=== PATIENT | male | born 1960 | race Caucasian/White ===

== ENCOUNTER 2017-12-19 09:28 | Observation (INO) | payer MEDICARE ==
[2017-12-19 11:16] LABS: Absolute Lymphocytes (CBC) 1.2 K/uL (0.7-4.9); Absolute Monocytes 0.5 K/uL (0.1-1.3); Absolute Neutrophil 3.4 K/uL (1.8-8.0); Basophils % 0.7 % (0-1.3); Eosinophils % 1.3 % (0-4.4); Hematocrit 41.7 % (39.6-49.0); Lymphocytes % 23.6 % (15.3-44.8); MCV 94.9 fL (80-100); MPV 9.1 fL (7.6-11.3); RBC Red Blood Cell Count 4.39 M/uL (4.33-5.43)
[2017-12-19] MEDS ORDERED: LORazepam 2 MG/ML VIAL ONE (11:19)
[2017-12-19] MEDS ORDERED: HALOPERIDOL LACT 5 MG/ML INJ ONE (11:25)
[2017-12-19 11:26] LABS: Protime INR 1.06
[2017-12-19 11:30] LABS: ALT/SGPT 111 U/L (12-78); AST/SGOT 111 U/L (15-37); Albumin 3.6 g/dL (3.4-5.0); Alkaline Phosphatase 120 U/L (45-117); BUN Blood Urea Nitrogen 8 mg/dL (7-18); Bicarbonate 32 mmol/L (21-32); Bilirubin Direct 0.2 mg/dL (0-0.2); Bilirubin Total 0.5 mg/dL (0.2-1.0); CKMB Creatine Kinase MB 4.8 ng/mL (0.3-3.6); Creatine Phosphokinase 425 U/L (39-308); Glucose Level 100 mg/dL (74-106); Magnesium 2.1 mg/dL (1.8-2.4); NT PRO-BNP 423 pg/mL (<125); Potassium 3.6 mmol/L (3.5-5.1); Protein, Total 7.3 g/dL (6.4-8.2); Sodium Level 139 mmol/L (136-145)
--- NOTE | 2017-12-19 12:17 | RAD REPORT ---
EXAM DESCRIPTION: CT - Head Brain Wo Cont - 12/19/2017 12:05 pm CLINICAL HISTORY: Seizure/confusion COMPARISON: December 2016 TECHNIQUE: Computed axial tomography of the head was obtained. IV contrast was not requested. All CT scans are performed using dose optimization technique as appropriate and may include automated exposure control or mA/KV adjustment according to patient size. FINDINGS: An intracranial bleed is not seen . The ventricles are normal in caliber. No extra-axial fluid collection is noted. Fluid within the sinuses/ mastoids is not seen. IMPRESSION: No acute intracranial abnormality is seen. If patient's symptoms persist MRI of the bra in would be recommended.
[2017-12-19] MEDS ORDERED: LORazepam 2 MG/ML VIAL IV PRN (12:29)
[2017-12-19] MEDS ORDERED: ONDANSETRON 4 MG/2 ML VIAL IV PRN (12:29)
[2017-12-19] MEDS ORDERED: FLUMAZENIL 0.1 MG/ML (5 mL VIAL) IV PRN (12:29)
--- NOTE | 2017-12-19 12:30 | EDPHYS ---
Physician Documentation [facility] Name: Allan Swanson Jr Age: 57 yrs Sex: Male : 1960 Arrival Date: 12/19/2017 Time: 09:30 Bed 3 Private MD: ED Physician Seven Miner HPI: 12/19 09:53 This 57 yrs old Male presents to ER via EMS with complaints of Seizure. jmm 09:53 The patient presents with a history of multiple seizures, a total of 2. Character of jmm seizure(s): Motor activity: generalized. Associated injury: The patient did not suffer any apparent associated injury. This is a 57 year old male with a history of seizures, hep c, COPD, that presents to the ED after having 2 seizures beginning early this morning. The patient's states the patient had a seizure which lasted approx 20 minutes and called ems. patient refused transporting. the patient had another seizure and was then trnsported. Patient is alert and non toxic in appearance, patient is alert currently. . Historical: - Allergies: 09:39 NKDA; ss - PMHx: 09:39 COPD; Hepatits C; alcoholism (6 months sober); Seizures; ss - Immunization history:: Adult Immunizations unknown. - Social history:: Smoking status: Patient uses tobacco products, Patient uses alcohol. - Ebola Screening: : Patient negative for fever greater than or equal to 101.5 degrees Fahrenheit, and additional compatible Ebola Virus Disease symptoms Patient denies exposure to infectious person Patient denies travel to an Ebola-affected area in the 21 days before illness onset. ROS: 09:53 Constitutional: Negative for fever, chills, and weight loss, Cardiovascular: Negative jmm for chest pain, palpitations, and edema, Respiratory: Negative for shortness of breath, cough, wheezing, and pleuritic chest pain, MS/Extremity: Negative for injury and deformity, Skin: Negative for injury, rash, and discoloration. 12:23 Neuro: Positive for seizure activity. jmm 12:23 All other systems are negative. Exam: 09:53 Constitutional: This is a well developed, well nourished patient who is awake, alert, jmm and in no acute distress. Head/Face: atraumatic. Chest/axilla: Normal chest wall appearance and motion. Cardiovascular: Regular rate and rhythm. No edema appreciated Respiratory: Normal respirations, no respiratory distress appreciated Abdomen/GI: Non distended, soft 09:53 Neuro: Orientation: is normal, Mentation: is normal, Memory: is normal, Cerebellar function: is grossly normal. 09:53 Psych: Behavior/mood is pleasant, cooperative. Vital Signs: 09:34 BP 150 / 82; Pulse 70; Resp 18; Temp 98.7; Pulse Ox 100% on R/A; Weight 81.65 kg; hj Height 6 ft. 3 in. (190.50 cm); Pain 0/10; 10:18 BP 136 / 74; Pulse 66; Resp 18; Pulse Ox 98% on R/A; sv 10:39 BP 130 / 74; Pulse 109; Resp 23; Pulse Ox 96% on R/A; dh3 12:50 BP 125 / 69 LA Sitting (auto/reg); Pulse 72 MON; Resp 18 S; Pulse Ox 95% on R/A; jp3 13:40 Pulse Ox 89% on R/A; sv 14:03 BP 140 / 80; Pulse 81; Resp 17; Pulse Ox 97% on 35% Venturi mask; sv 09:34 Body Mass Index 22.50 (81.65 kg, 190.50 cm) hj 13:40 Pt placed on Venturi mask at 35%. O2 sat up to 96%. sv [place] Coma Score: 09:38 Eye Response: spontaneous(4). Verbal Response: oriented(5). Motor Response: obeys hj commands(6). Total: 15. MDM: 09:53 Patient medically screened. [facility] 12:25 Data reviewed: vital signs, nurses notes. [facility] 13:36 Data reviewed: radiologic studies, CT scan. Counseling: I had a detailed discussion [facility] with the patient and/or guardian regarding: the historical points, exam findings, and any diagnostic results supporting the discharge/admit diagnosis, the need for further work-up and treatment in the hospital. ED course: The patient developed combativeness while in the ED. Haldol and Ativan was administered which relieved symptoms. I discussed the patient with Dr. Cruz whom advised to administer 10mg/kg phenytoin IV. The patient's etoh level is 3. Due to concerns for DT patient admitted for observation. The patient became combative again prior to going to the floor. I discussed this with Dr. Miner whom advised to administer ketamine. Patient is currently in no respiratory distress and non combative on admission. . 12/19 09:55 Order name: Basic Metabolic Panel; Complete Time: 11:34 [facility] 12/19 09:55 Order name: CBC with Diff; Complete Time: 11:27 [facility] 12/19 09:55 Order name: Ckmb; Complete Time: 11:34 [facility] 12/19 09:55 Order name: CPK; Complete Time: 11:34 [facility] 12/19 09:55 Order name: LFT's; Complete Time: 11:34 [facility] 12/19 09:55 Order name: Magnesium; Complete Time: 11:34 [facility] 12/19 09:55 Order name: NT PRO-BNP; Complete Time: 11:34 [facility] 12/19 09:55 Order name: PT-INR; Complete Time: 11:34 [facility] 12/19 09:55 Order name: Ptt, Activated; Complete Time: 11:34 [facility] 12/19 09:55 Order name: Troponin (emerg Dept Use Only); Complete Time: 11: [facility] 12/19 10:00 Order name: ETOH Level; Complete Time: 11:27 [facility] 12/19 10:00 Order name: Urine Drug Screen; Complete Time: 14:20 [facility] 12/19 11:08 Order name: Dilantin; Complete Time: 12:06 [facility] 12/19 12:35 Order name: CBC with Automated Diff EDMD 12/19 09:55 Order name: EKG; Complete Time: 09:56 [facility] 12/19 11:39 Order name: CT Head Brain wo Cont; Complete Time: 12:18 [facility] 12/19 12:35 Order name: CONS Physician Consult EDMD 12/19 12:35 Order name: NPO EDMD 12/19 12:35 Order name: CBC with Automated Diff EDMD 12/19 12:35 Order name: Comprehensive Metabolic Panel EDMD 12/19 12:35 Order name: Comprehensive Metabolic Panel EDMD 12/19 12:35 Order name: Phenytoin (Dilantin) Level EDMD 12/19 12:35 Order name: Phenytoin (Dilantin) Level EDMD 12/19 14:02 Order name: Urine Dipstick--Ancillary (enter results) ag 12/19 14:25 Order name: Urine Dipstick-Ancillary; Complete Time: 15:19 EDMS 12/19 09:55 Order name: Cardiac monitoring; Complete Time: 10:14 [facility] 12/19 09:55 Order name: EKG - Nurse/Tech; Complete Time: 10:14 [facility] 12/19 09:55 Order name: IV Saline Lock; Complete Time: 11:00 [facility] 12/19 09:55 Order name: Labs collected and sent; Complete Time: 11:00 [facility] 12/19 09:55 Order name: O2 Per Protocol; Complete Time: 10:14 [facility] 12/19 09:55 Order name: O2 Sat Monitoring; Complete Time: 10:15 [facility] 12/19 09:55 Order name: Urine Dipstick-Ancillary (obtain specimen); Complete Time: 13:50 [facility] 12/19 12:35 Order name: Delirium Tremens Prophylaxis-IV Meds EDMS Administered Medications: 11:22 Drug: Ativan 2 mg Route: IVP; Site: right antecubital; ss 12:57 Follow up: Response: No adverse reaction sv 11:26 Drug: HALdol (as decanoate) 10 mg Route: IM; Site: left vastus lateralis; ss 12:56 Follow up: Response: No adverse reaction sv 13:19 Drug: Versed 2 mg Route: IVP; Site: right antecubital; la1 14:07 Follow up: Response: No adverse reaction sv 13:35 Drug: Ketamine 2 mg/kg Route: IVP; Site: right antecubital; sv 14:07 Follow up: Response: No adverse reaction sv 13:49 Drug: Phenytoin 800 mg Route: IVPB; Site: right antecubital; sv 14:08 Follow up: Response: No adverse reaction; IV Status: Completed infusion; IV Intake: sv 100ml Disposition: 17:35 Co-signature as Attending Physician, Seven Miner MD Available for consultation at [facility] all times. . Disposition: 12/19/17 12:28 Hospitalization ordered by Bob Montelongo for Observation. Preliminary diagnosis is Epilepsy and recurrent seizures. - Bed requested for Telemetry/MedSurg (observation). - Status is Observation. sv - Condition is Stable. - Problem is an acute exacerbation. - Symptoms have improved. UTI on Admission? No Signatures: Dispatcher [employer] EDMS Radha Haynes RN RN Yong Singh PA PA m Rosamaria Mendez, RN FABIOLA ss Robb Luna RN RN la1 Caro Robertson ag Carlos Garner, RN RN hj Seven Miner MD MD ps1 Corrections: (The following items were deleted from the chart) 12:24 12:23 Constitutional: Negative for fever, chills, and weight loss, Cardiovascular: jmm Negative for chest pain, palpitations, and edema, Respiratory: Negative for shortness of breath, cough, wheezing, and pleuritic chest pain, MS/Extremity: Negative for injury and deformity, Skin: Negative for injury, rash, and discoloration, jm 13:18 12:28 Hospitalization Ordered by Bob Montelongo MD for Observation. Preliminary diagnosis ag is Epilepsy and recurrent seizures. Bed requested for Telemetry/MedSurg (observation). Status is Observation. Condition is Stable. Problem is an acute exacerbation. Symptoms have improved. UTI on Admission? No. [facility] 14:32 13:18 12/19/2017 12:28 Hospitalization Ordered by Bob Montelongo MD for Observation. sv Preliminary diagnosis is Epilepsy and recurrent seizures. Bed requested for Telemetry/MedSurg (observation). Status is Observation. Condition is Stable. Problem is an acute exacerbation. Symptoms have improved. UTI on Admission? No. ag 15:43 09:53 This is a 57 year old male with a history of seizures, hep c, COPD, that presents jmm to the ED after having 2 seizures beginning early this morning. The patient's states the patient. [facility]
[2017-12-19] MEDS ORDERED: PHENYTOIN IV ONE (13:15)
[2017-12-19] MEDS ORDERED: NA CHLORIDE 0.9% IV ONE (13:15)
[2017-12-19] MEDS ORDERED: MIDAZOLAM HCL 2 MG/2 ML INJ ONE (13:22)
[2017-12-19] MEDS ORDERED: KETAMINE HCL 500 MG/5 ML VIAL ONE (13:35)
--- NOTE | 2017-12-19 13:43 | EKG ---
Test Date: 2017-12-19 Test Time: 09:39:04 Cloth Framer: JOSE MIGUEL MEASUREMENT RESULTS: Intervals: Rate: 73 VA: 156 QRSD: 90 QT: 404 QTc: 445 [place]: P: 60 VA: 156 QRS: 22 T: 66 INTERPRETIVE STATEMENTS: Normal sinus rhythm Normal ECG Compared to ECG 02/18/2017 16:38:36 Sinus arrhythmia no longer present Electronically Signed On 12-19-17 13:42:30 CDT by Dave Reynoso
[2017-12-19 14:13] LABS: Barbiturates NEGATIVE (NEGATIVE); Benzodiazepines POSITIVE (NEGATIVE); Cocaine NEGATIVE (NEGATIVE); METHAMPHETAM NEGATIVE (NEGATIVE); Methadone NEGATIVE (NEGATIVE); Opiates NEGATIVE (NEGATIVE); Phencyclidine NEGATIVE (NEGATIVE); THC Cannibis NEGATIVE (NEGATIVE)
[2017-12-19 14:25] LABS: Urine Blood NEGATIVE (NEG); Urine Glucose NEGATIVE (NEG); Urine Protein NEGATIVE (NEG); Urine pH 7.5 (5.0-7.0)
--- NOTE | 2017-12-19 14:33 | ER ---
Nurse's Notes [facility] Name: Allan Swanson Jr Age: 57 yrs Sex: Male : 1960 Arrival Date: 12/19/2017 Time: 09:30 Bed 3 Private MD: Diagnosis: Epilepsy and recurrent seizures Presentation: 12/19 09:30 Presenting complaint: EMS states: Patient reportedly had a seizure this morning. ss called EMS, but patient initially refused transportation at 0730 this morning. Pt again had another Seizure lasting 2-3 minutes, so called EMS again. EMS reports that patient has a history of alcoholism, but hasn't drank in 6 months. Has been on seizure medications, but reports that patient has not taken his medications in the past 5-6 days. Meds given this morning by after initial seizure. Transition of care: patient was not received from another setting of care. Onset of symptoms was December 19, 2017. Risk Assessment: Do you want to hurt yourself or someone else? Patient reports no desire to harm self or others. Initial Sepsis Screen: Does the patient meet any 2 criteria? No. Patient's initial sepsis screen is negative. Does the patient have a suspected source of infection? No. Patient's initial sepsis screen is negative. Care prior to arrival: 2 missed IV attempts, bleeding controlled. 09:30 Method Of Arrival: EMS: [facility] 09:30 Acuity: ARSLAN 2 09:36 Risk Assessment: Do you want to hurt yourself or someone else? Patient reports no hj desire to harm self or others. Initial Sepsis Screen: Does the patient meet any 2 criteria?. Initial Sepsis Screen: Does the patient have a suspected source of infection? No. Patient's initial sepsis screen is negative. Care prior to arrival: None. Triage Assessment: 09:38 General: Appears in no apparent distress. uncomfortable, Behavior is calm, cooperative, hj appropriate for age. Historical: - Allergies: 09:39 NKDA; ss - PMHx: 09:39 COPD; Hepatits C; alcoholism (6 months sober); Seizures; ss - Immunization history:: Adult Immunizations unknown. - Social history:: Smoking status: Patient uses tobacco products, Patient uses alcohol. - Ebola Screening: : Patient negative for fever greater than or equal to 101.5 degrees Fahrenheit, and additional compatible Ebola Virus Disease symptoms Patient denies exposure to infectious person Patient denies travel to an Ebola-affected area in the 21 days before illness onset. Screenin:36 Abuse screen: Denies threats or abuse. Denies injuries from another. Nutritional hj screening: No deficits noted. Tuberculosis screening: No symptoms or risk factors identified. Fall Risk None identified. Assessment: 09:37 General: Appears in no apparent distress. uncomfortable, Behavior is calm, cooperative, hj appropriate for age. Pain: Denies pain. Neuro: Level of Consciousness is awake, alert, obeys commands, Oriented to person, place, time, situation, Appropriate for age. Cardiovascular: Denies chest pain, Heart tones S1 S2 present Capillary refill < 3 seconds Patient's skin is warm and dry. Respiratory: Airway is patent Respiratory effort is even, unlabored, Respiratory pattern is regular, symmetrical. GI: No signs and/or symptoms were reported involving the gastrointestinal system. : No signs and/or symptoms were reported regarding the genitourinary system. EENT: No signs and/or symptoms were reported regarding the EENT system. Derm: No signs and/or symptoms reported regarding the dermatologic system. Musculoskeletal: No signs and/or symptoms reported regarding the musculoskeletal system. 10:50 General: Appears in no apparent distress. comfortable, Behavior is calm, cooperative, aj appropriate for age. Neuro: Level of Consciousness is awake, alert, obeys commands, Oriented to person, place, time, situation, Appropriate for age. Neuro: Migratory Farm Hand are equal bilaterally Moves all extremities. Full function Speech is normal, Facial symmetry appears normal, Intact. Respiratory: Airway is patent Respiratory effort is even, unlabored, Respiratory pattern is regular, symmetrical. Derm: Skin is intact, is healthy with good turgor, Skin is pink, warm \T\ dry. normal. 11:20 Reassessment: Pt is confused, stating that he needs to go. Pt has removed all monitors ss and is unable to to be verbally redirected. [place] notified. Multiple ED staff members attempting to safely have patient return back to [facility]. 12:59 General: Appears in no apparent distress. comfortable, Behavior is calm, cooperative. sv Pain: Denies pain. Neuro: Level of Consciousness is lethargic. Respiratory: Respiratory effort is even, unlabored, Respiratory pattern is regular, symmetrical. 13:15 General: Behavior is restless, uncooperative, Attempting to get out of bed. Pt advised sv to get back in the bed, pt unable to follow direction at this time. Informed Bright BRUNO, medication order received.. Neuro: Level of Consciousness is awake, alert, Oriented to person. 13:28 General: Behavior is agitated, restless, uncooperative, Pt still attempting to get out sv of bed. Medication order received by Yong BRUNO. 14:15 Reassessment: Patient appears in no apparent distress at this time. General: Appears in sv no apparent distress. comfortable, Behavior is calm, drowsy. Neuro: Level of Consciousness is lethargic. Respiratory: Respiratory effort is even, unlabored, Respiratory pattern is regular, symmetrical. Vital Signs: 09:34 BP 150 / 82; Pulse 70; Resp 18; Temp 98.7; Pulse Ox 100% on R/A; Weight 81.65 kg; hj Height 6 ft. 3 in. (190.50 cm); Pain 0/10; 10:18 BP 136 / 74; Pulse 66; Resp 18; Pulse Ox 98% on R/A; sv 10:39 BP 130 / 74; Pulse 109; Resp 23; Pulse Ox 96% on R/A; dh3 12:50 BP 125 / 69 LA Sitting (auto/reg); Pulse 72 MON; Resp 18 S; Pulse Ox 95% on R/A; jp3 13:40 Pulse Ox 89% on R/A; sv 14:03 BP 140 / 80; Pulse 81; Resp 17; Pulse Ox 97% on 35% Venturi mask; sv 09:34 Body Mass Index 22.50 (81.65 kg, 190.50 cm) hj 13:40 Pt placed on Venturi mask at 35%. O2 sat up to 96%. sv [place] Coma Score: 09:38 Eye Response: spontaneous(4). Verbal Response: oriented(5). Motor Response: obeys hj commands(6). Total: 15. ED Course: 09:30 Patient arrived in ED. ss 09:32 Carlos Garner, RN is Primary Nurse. hj 09:36 Arm band placed on right wrist. hj 09:37 Patient has correct armband on for positive identification. Placed in gown. Bed in low hj position. Call light in reach. Side rails up X2. Adult w/ patient. 09:37 Seizure precautions initiated. hj 09:38 Triage completed. ss 09:45 [facility] Conte [facility]. jmm 09:45 Seven Miner MD is Attending Physician. jmm 09:52 EKG done, by technology assistant. reviewed by Yong BRUNO. at1 10:00 Report given to FABIOLA Whitlock. hj 10:48 Accessed peripheral vein via ultrasound, utilizing dynamic ultrasound technique using la1 18G Sureflo IV catheter Clean \T\ dry. Good blood return. 11:06 Carlos Garner, RN is Primary Nurse. hj 12:05 CT Head Brain wo Cont In Process Unspecified. EDMS 12:05 CT completed. Patient tolerated procedure well. Patient moved back from CT. vr 12:27 Bob Montelongo MD is Hospitalizing Provider. jmm 12:56 Warm blanket given. jp3 12:58 Radha Haynes RN is Primary Nurse. sv 13:01 No provider procedures requiring assistance completed. Patient admitted, IV remains in sv place. intact. 13:49 Urine collected: [place] catheter specimen, clear, Amount Returned: 100mL. dh3 14:08 Urine Dipstick--Ancillary (enter results) Sent. sv Administered Medications: 11:22 Drug: Ativan 2 mg Route: IVP; Site: right antecubital; ss 12:57 Follow up: Response: No adverse reaction sv 11:26 Drug: HALdol (as decanoate) 10 mg Route: IM; Site: left vastus lateralis; ss 12:56 Follow up: Response: No adverse reaction sv 13:19 Drug: Versed 2 mg Route: IVP; Site: right antecubital; la1 14:07 Follow up: Response: No adverse reaction sv 13:35 Drug: Ketamine 2 mg/kg Route: IVP; Site: right antecubital; sv 14:07 Follow up: Response: No adverse reaction sv 13:49 Drug: Phenytoin 800 mg Route: IVPB; Site: right antecubital; sv 14:08 Follow up: Response: No adverse reaction; IV Status: Completed infusion; IV Intake: sv 100ml Intake: 14:08 IV: 100ml; Total: 100ml. sv Outcome: 12:28 Decision to Hospitalize by Provider. jmm 14:23 Admitted to Tele accompanied by tech, via stretcher, room 211, with oxygen, with chart, sv Report called to Celestine HICKS 14:23 Condition: stable 14:23 Instructed on the need for admit. 14:32 Patient left the ED. sv Signatures: Dispatcher [employer] EDRadha Simons, RN Chinyere Blanchard RN Yong Eagle PA PA jmm Smirch, Shelby, Addie Bridges RN, Amanda, car wash supervisor EKG Tat1 Robb Luna RN RN la1 Carlos Garner RN Alicia Benitez 3 Ramiro Johnston jp3 Corrections: (The following items were deleted from the chart) 14:12 14:03 BP 140 / 80; Pulse 81bpm; Resp 17bpm; Pulse Ox 97% RA; sil montgomery
--- NOTE | 2017-12-19 15:18 | HP ---
Date of Admission: 12/19/2017 Consultants: Chandler Cruz M.D., neurology. Code Status: Full. Chief Complaint: Seizure. History Of Present Illness: The patient is a 57-year-old male with past medical history of seizure disorder, comes in with agitation and history of seizures x2. The patient also had witnessed seizure in the ER. Unfortunately, there are no family members available. The patient is somnolent and unable to cooperate with history taking due to recent medications of Ativan and Haldol due to his agitation. The patient does drink and his alcohol level was 3. He may be withdrawing due to alcohol. The patient also has history of hepatitis C and COPD . The patient's vital signs were stable. He was afebrile. His workup revealed elevated liver enzymes. White count was normal. His alcohol level was 3 and Dilantin level was subtherapeutic at 7.8. UDS is pending. Head CT scan was done, which did not show any intracranial bleed and was given Ativan and Haldol for his agitation and seizure, which improved his condition. The patient was also loaded with phenytoin 800 mg. The patient was then referred for admission. When seen in the ER, he was asleep, barely arousable, not able to cooperate in history taking. Past Medical History: Seizure disorder, COPD, hepatitis C, apparent history of lung mass, alcoholism. Past Surgical History: Left knee surgery. 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 Allergies: NO KNOWN DRUG ALLERGIES. Medications: Supposed to be taking Dilantin. Social History: The patient is a daily smoker and drinker. No illicit drug use. , lives at home. Family History: Father has hypertension and lung disease. Mother had lung disease. Sister has stroke and cancer. Review of Systems: Unable to obtain due to the patient's medical condition. Physical Examination: Vital Signs: Blood pressure 150/82, pulse 70, respirations 18, temperature 98.7 , O2 100% on room air. General: Asleep but arousable, confused, somnolent, appears older than stated age male. HEENT: Normocephalic, atraumatic. PERRLA. EOMI. Moist mucous membranes. Poor dentition. Conjunctivae anicteric. Neck: Supple. No JVD. Trachea midline. CV: S1, S2. No murmurs. Regular rate and rhythm. Peripheral pulses weak bilaterally. Respiratory: Moving air well bilaterally. Some diminished breath sounds at the bases. Poor respiratory effort. No wheezing or stridor Gastrointestinal: Abdomen is soft, nontender, nondistended. Positive bowel sounds. No guarding or rigidity. Extremities: No clubbing, cyanosis, or edema. No calf tenderness. Neuro: unable to properly assess cranial nerves, however, no apparent abnormality. Moves all 4 extremities. Opens eyes to sternal rub, somewhat somnolent and confused. Skin: No rashes. Normal skin turgor. Laboratory Data: UDS pending. Phenytoin level 7.8. Alcohol level 3. Sodium 139, potassium 3.6, chloride 103, CO2 32, BUN 8, creatinine 0.8, glucose 100, calcium 8.7, magnesium 2.1, AST 111, ALT 111, total bilirubin 0.5, alkaline phosphatase 120. Troponin less than 0.02. BNP 423. Albumin 3.6, INR 1.06. WBC 5.2, H and H 14.5, 41.7, platelets 155. Head CT scan shows no acute intracranial bleed. Assessment: A 57-year-old male with; 1. Acute seizure episode. The patient does have history of seizures, noncompliant with his Dilantin, level is subtherapeutic. Will be loaded with phenytoin and will recheck Dilantin level in a.m. We will place on seizure precautions and fall precautions. 2. Acute alcohol withdrawal. Continue Ativan p.r.n. Continue with IV fluids with thiamine and folate. 3. Alcohol dependence. Level is less than 3. 4. Chronic obstructive pulmonary disease, chronic bronchitis. Albuterol p.r.n. 5. Noncompliance, intentional. 6. Nicotine dependence with cigarette smoking, continuous. We will pastoral counselor once THE patient is more alert. 7. History of hepatitis C. 8. Elevated liver enzymes secondary to above. 9. Gastrointestinal and deep venous thrombosis prophylaxis with PPI and Lovenox. Plan: Admit the patient to Med-Surg, place as observation. Dr. Cruz, the patient's neurologist has been consulted. ADDENDUM: Patient's at bedside. Patient has been smoking synthetic weed and drinking etoh. Non compliant with his meds. He had 2 seizure episodes at home and EMS was called. He had bowel and bladder incontinence. FERNANDO Voice ID: [id number] TA
[2017-12-19] MEDS: PANTOPRAZOLE 40MG TABLET PO SCH (16:47)
[2017-12-19] MEDS ORDERED: FOLIC ACID 1 MG, MULTIVITAMINS INJ 10 ML, THIAMINE HCL 100 MG in NA CHLORIDE 0.9% 1,000 ML IV ONE (17:00)
[2017-12-19] MEDS ORDERED: HOME MED 1 EA UNK (Omeprazole [Prilosec] 40 MG) PO SCH (21:00)
[2017-12-19] MEDS: levETIRAcetam 500 MG TAB PO SCH (21:00)
[2017-12-19] MEDS: AMOXICILLIN TRIHYDR 250 MG CAP PO SCH (21:00)
[2017-12-19] MEDS ORDERED: AMOXICILLIN 500 MG PO SCH (21:00)
[2017-12-19] MEDS: CLARITHROMYCIN 500 MG TABLET PO SCH (21:00)
[2017-12-19] MEDS: CIPROFLOXACIN HCL 500 MG TAB PO SCH (21:00)
--- NOTE | 2017-12-20 03:16 | CON ---
Reason For Consultation: Consultation called because of seizures. History Of Present Illness: Mr. Swanson is a 57-year-old patient with history of heavy alcohol abus e, localization-related complex partial seizures, hepatitis C, and COPD, who was brought to the emerg ency room with multiple seizures after he drank alcohol and used synthetic marijuana while not taking his Dilantin as prescribed. The patient reportedly had a third seizure somewhere in the hospital, s eizures are generalized tonic-clonic. In the emergency room, alcohol level was found to be 3 and he was felt to be withdrawing from alcohol and Dilantin level was subtherapeutic at 7.8. The patient di d receive a half load of Dilantin. As he was recovering from seizures, he became somewhat aggressive , combative and did receive Ativan and Haldol, and a total of 800 mg of Dilantin before he became charo ewhat sedated, but could be aroused with stimulation. Past Medical History: As indicated above. Past Surgical History: Left knee, condyloma resection from the anus. Allergies: NO KNOWN DRUG ALLERGIES. Medications: Dilantin 300 mg at night. Social History: Smokes and drinks alcohol daily and uses synthetic marijuana. The patient lives wit h . Family History: Hypertension and lung disease in father and mother. Sister with stroke and cancer. Review of Systems: Cannot be obtained as the patient is not responding appropriately, but somewhat sedated. Physical Examination: Vital Signs: Blood pressure 140/80, pulse 68, respiratory rate 16, temperature 98.7, and oxygen satu ration 96% with venturi mask. General: Mr. Swanson is resting in bed with the mask in place. He does have spontaneous movement, although slow, of the legs and arms and those are symmetric. HEENT: Appears normocephalic and atraumatic. Sclerae are anicteric. Oropharynx is moist. Neck: Supple. Chest: Clear. Neurological: As indicated, the patient is resting in bed with venturi mask. He has response to sti mulation by moving the arms and legs equally well. He has normal tone in the arms and legs. His fac e appears symmetric. Pupils are equal and reactive. Unable to fully assess coordination, gait, and strength. Laboratory Studies: Complete blood count with differential is completely normal. Coagulation panel is essentially unremarkable. Chemistries are all normal. Liver function studies show elevated AST a t 111 and ALT also elevated at 111, alkaline phosphate elevated at 120, creatine-kinase elevated at 4 35, CK-MB elevated at 4.8. Urinalysis shows slightly elevated pH of 7.5, all otherwise unremarkable. Dilantin level again 7.8 and benzodiazepine screen is positive with alcohol level of 3. His head C T shows no ischemic or hemorrhagic change. Electrocardiogram is normal sinus rhythm, normal study. Assessment: Mr. Swanson is a 57-year-old patient who has alcohol-related along with antiepileptic m edication withdrawal-type seizure, and seizure is also possibly due to use of synthetic marijuana. Plan: 1.The patient should be treated for alcohol withdrawal. 2.He should receive Dilantin 300 mg at night. 3.The patient will require an alcohol cessation program on his discharge and best be served in a [facility] facility that allows for management of that condition. 4.The patient's was told the importance of being compliant with his Dilantin dosage at 300 mg a t night and he should have a blood level checked within 1 week of resuming his current dose of 300 mg at night. 5.After discharge, the patient may follow up in Dr. Cruz's clinic 1 month later. AMADEO/AMBIKA Voice ID: [id number] Report ID: [id number]
[2017-12-20 05:03] LABS: Absolute Lymphocytes (CBC) 2.7 K/uL (0.7-4.9); Absolute Neutrophil 4.4 K/uL (1.8-8.0); Basophils % 0.5 % (0-1.3); Eosinophils % 1.6 % (0-4.4); Hematocrit 41.5 % (39.6-49.0); Lymphocytes % 32.6 % (15.3-44.8); MCH 33.4 pg (27.0-35.0); MCV 96.4 fL (80-100); MPV 9.2 fL (7.6-11.3); RBC Red Blood Cell Count 4.31 M/uL (4.33-5.43)
[2017-12-20 05:25] LABS: ALT/SGPT 108 U/L (12-78); AST/SGOT 107 U/L (15-37); Albumin 3.4 g/dL (3.4-5.0); Alkaline Phosphatase 110 U/L (45-117); BUN Blood Urea Nitrogen 10 mg/dL (7-18); Bicarbonate 27 mmol/L (21-32); Bilirubin Total 0.8 mg/dL (0.2-1.0); Glucose Level 77 mg/dL (74-106); Phenytoin (Dilantin) Level 12.8 ug/mL (10.0-20.0); Potassium 3.8 mmol/L (3.5-5.1); Sodium Level 138 mmol/L (136-145)
[2017-12-20] MEDS ORDERED: NA CHLORIDE 0.9% 250 ML ONE (06:20)
[2017-12-20] MEDS ORDERED: KCL 20 MEQ/100 mL IVPB 20 MEQ/100 ML BAG IV SCH (07:00)
[2017-12-20] MEDS ORDERED: FOLIC ACID 1 MG, MULTIVITAMINS INJ 10 ML, THIAMINE HCL 100 MG in NA CHLORIDE 0.9% 1,000 ML IV SCH (09:00)
[2017-12-20] MEDS ORDERED: ENOXAPARIN 40 MG/0.4 ML SQ SCH (09:00)
[2017-12-20] MEDS: PANTOPRAZOLE 40MG TABLET PO SCH (09:24)
[2017-12-20] MEDS: levETIRAcetam 500 MG TAB PO SCH (09:24)
[2017-12-20] MEDS: CIPROFLOXACIN HCL 500 MG TAB PO SCH (09:25)
[2017-12-20] MEDS: AMOXICILLIN TRIHYDR 250 MG CAP PO SCH (09:25)
[2017-12-20] MEDS: CLARITHROMYCIN 500 MG TABLET PO SCH (09:25)
[2017-12-20] MEDS ORDERED: PHENYTOIN ER 100 MG CAP PO SCH (21:00)
--- NOTE | 2017-12-21 02:47 | DS ---
Date of Discharge: 12/20/2017 Discharge Diagnoses: 1. Acute seizure episode. 2. Acute metabolic encephalopathy. 3. Alcohol dependence with acute withdrawal. 4. Synthetic marijuana abuse. 5. Noncompliance. 6. Chronic obstructive pulmonary disease, chronic bronchitis. 7. Nicotine dependence with cigarette smoking, continuous. 8. History of hepatitis C. 9. Elevated liver enzymes secondary to above. Hospital Course: The patient is a noncompliant 57-year-old male who has history of seizures, comes in with seizures x2 at home and another episode in the ER. According to the , the patient is noncompliant with his medications. He has also been drinking and was using synthetic marijuana. The patient came in agitated and received Ativan and Haldol as well as ketamine in the ER. The patient's workup revealed elevated liver enzymes, which is likely secondary to history of hepatitis C. His Dilantin level was subtherapeutic consistent with the history of noncompliance. CT scan of the head was done, did not show any acute intracranial bleed. Dr. Cruz with Neurology was consulted. The patient was given loading dose of phenytoin. The patient's repeat Dilantin level was within the therapeutic window. He was much more awake and alert. He was counseled regarding his cigarette smoking, alcohol, and synthetic weed and marijuana. The patient voiced understanding, claiming that it was not his. The patient was then able to tolerate a diet. He was able to take his medications, did not have any further seizure episodes. Patient refused inpatient psych facility or rehab for etoh. He was then discharged home in stable condition. Activity: Seizure precautions. No driving, operating heavy machinery, swimming. Diet: Regular diet. No alcohol. Followup: Follow up with primary care physician in 2 to 3 days. Follow up with neurologist, Dr. Cruz in 2 weeks. Return to ER for worsening condition. Medications: As per medication reconciliation list. Physical Examination: General: Awake, alert, oriented x3. No acute distress. Appears older than stated age. CV: S1, S2. No murmurs. Respiratory: Moving air well bilaterally. Abdomen: Soft, nontender, nondistended. Positive bowel sounds. Extremities: No clubbing, cyanosis, edema. Neurologic: Nonfocal. SA/MODL Voice ID: [id number] Report ID: [id number] MTDD
== END 2017-12-20 11:23 | disposition home or self-care (01) ==
LOC: ER 09:28 → ERHOLD 12:29 → 2ND 14:23 → 4TH 21:29
PROVIDERS: ADMIT Family Medicine; ATTEND Family Medicine
DX: G40.909 Epilepsy, unspecified, not intractable, without status epilepticus (principal); G93.41 Metabolic encephalopathy; F10.239 Alcohol dependence with withdrawal, unspecified; F10.20 Alcohol dependence, uncomplicated; F12.10 Cannabis abuse, uncomplicated; J44.9 Chronic obstructive pulmonary disease, unspecified; F17.210 Nicotine dependence, cigarettes, uncomplicated; Z91.14 Patient's other noncompliance with medication regimen; Z86.19 Personal history of other infectious and parasitic diseases; R74.8 Abnormal levels of other serum enzymes
CPT/HCPCS: 36415; 70450; 80048; 80053; 80076; 80185 ×2; 80307 ×8; 80320; 81003; 82550; 82553; 83735; 83880; 84484; 85025 ×2; 85610; 85730; 93005; 94760 ×3; 96365; 96372; 96375; 99285; G0378 ×2; J1165; J1630; J1650; J2250; J3411 ×3; J7030 ×3

== ENCOUNTER → 2018-01-25 01:03 | Inpatient (IN) | payer MEDICARE ==
[~2018-01-25 01:03] MED LIST: ACETAMINOPHEN 500 MG TAB PO PRN; ASPIRIN EC 81 MG TAB PO SCH; ENOXAPARIN 40 MG/0.4 ML SQ SCH; LORazepam 2 MG/ML VIAL IV PRN; MORPHINE 4 MG/ML SYR IV PRN; NITROGLYCERIN 0.4 MG/TAB SL PRN
[2018-01-25 16:47] LABS: Absolute Monocytes 0.7 K/uL (0.1-1.3); Absolute Neutrophil 6.2 K/uL (1.8-8.0); Basophils % 1.2 % (0-1.3); Eosinophils % 1.7 % (0-4.4); Hematocrit 45.9 % (39.6-49.0); Lymphocytes % 21.4 % (15.3-44.8); MCH 33.1 pg (27.0-35.0); MCV 94.2 fL (80-100); MPV 10.1 fL (7.6-11.3); Monocytes % 7.6 % (3.3-12.3); RBC Red Blood Cell Count 4.87 M/uL (4.33-5.43)
[2018-01-25 16:54] LABS: ALT/SGPT 35 U/L (12-78); AST/SGOT 28 U/L (15-37); Albumin 3.6 g/dL (3.4-5.0); Alkaline Phosphatase 137 U/L (45-117); BUN Blood Urea Nitrogen 11 mg/dL (7-18); Bicarbonate 22 mmol/L (21-32); Bilirubin Direct < 0.1 mg/dL (0-0.2); Bilirubin Total 0.4 mg/dL (0.2-1.0); CKMB Creatine Kinase MB < 1.0 ng/mL (0.3-3.6); Creatine Phosphokinase 91 U/L (39-308); Glucose Level 81 mg/dL (74-106); Magnesium 2.2 mg/dL (1.8-2.4); NT PRO-BNP 434 pg/mL (<125); Potassium 4.4 mmol/L (3.5-5.1); Protein, Total 7.5 g/dL (6.4-8.2); Sodium Level 139 mmol/L (136-145); Troponin (Emerg Dept Use Only) < 0.02 ng/mL (0.0-0.045)
--- NOTE | 2018-01-25 17:09 | RAD REPORT ---
EXAM DESCRIPTION: RAD - Chest Single View - 01/25/2018 4:43 pm CLINICAL HISTORY: Seizure, shortness of breath COMPARISON: December 2016 TECHNIQUE: AP portable chest image was obtained 1615 hours . FINDINGS: Chronic interstitial lung disease is present with the interstitial pattern similar to the comparison. No superimposed failure, infiltrate or mass. Heart and vasculature are normal. No measura ble pleural effusion and no pneumothorax. No gross bony abnormality seen. No acute aortic findings guzman spected. IMPRESSION: No acute cardiopulmonary process. Chronic interstitial lung disease is present similar to December 2016.
--- NOTE | 2018-01-25 18:04 | ER ---
Nurse's Notes [facility] Name: Allan Swanson Jr Age: 57 yrs Sex: Male : 1960 Arrival Date: 01/25/2018 Time: 15:02 Bed 8 Private MD: Diagnosis: Chest pain, unspecified Presentation: 01/25 15:04 Presenting complaint: EMS states: He had a seizure lasting approx. 3-4 minutes. Has a jl7 hx of seizures, c/o right sided chest wall pain, says it feels sore to touch. Transition of care: patient was not received from another setting of care. Onset of symptoms was January 25, 2018. Risk Assessment: Do you want to hurt yourself or someone else? Patient reports no desire to harm self or others. Initial Sepsis Screen: Does the patient meet any 2 criteria? No. Patient's initial sepsis screen is negative. Does the patient have a suspected source of infection? No. Patient's initial sepsis screen is negative. Care prior to arrival: None. 15:04 Method Of Arrival: EMS: [facility] jl7 15:04 Acuity: ARSLAN 3 jl7 Triage Assessment: 15:08 General: Appears in no apparent distress. uncomfortable, Behavior is calm, cooperative, jl7 appropriate for age. Pain: Complains of pain in anterior aspect of right upper chest Pain does not radiate. Pain currently is 4 out of 10 on a pain scale. Quality of pain is described as sore Pain began 30 min ago. EENT: No signs and/or symptoms were reported regarding the EENT system. Neuro: Level of Consciousness is awake, alert, obeys commands, Oriented to person, place, time, situation. Cardiovascular: Patient's skin is warm and dry. Respiratory: Airway is patent Respiratory effort is even, unlabored, Respiratory pattern is regular, symmetrical. GI: No signs and/or symptoms were reported involving the gastrointestinal system. : No signs and/or symptoms were reported regarding the genitourinary system. Derm: Skin is pink, warm \T\ dry. Musculoskeletal: No signs and/or symptoms reported regarding the musculoskeletal system. Historical: - Allergies: 15:08 NKDA; jl7 - Home Meds: 20:01 Phenytoin 100 mg Oral 3 tabs nightly [Active]; mavyret 100 40 mg 3 tab daily [Active]; fc omeprazole 40 mg Oral cpDR 1 cap once daily [Active]; - PMHx: 15:08 alcoholism (6 months sober); COPD; hepatits C; Seizures; jl7 - Immunization history:: Adult Immunizations not up to date. - Social history:: Smoking status: Patient uses tobacco products, smokes one-half pack cigarettes per day, Patient uses street drugs, IV drugs, Patient/guardian denies using The patient lives with family. - Ebola Screening: : No symptoms or risks identified at this time. - Family history:: not pertinent. Screenin:12 Abuse screen: Denies threats or abuse. Denies injuries from another. Nutritional jl7 screening: No deficits noted. Tuberculosis screening: No symptoms or risk factors identified. Fall Risk No fall in past 12 months (0 pts). Secondary diagnosis (15 points) seizures, IV access (20 points). Ambulatory Aid- None/Bed Rest/Nurse Assist (0 pts). Gait- Normal/Bed Rest/Wheelchair (0 pts) Mental Status- Oriented to own ability (0 pts). Total Pratt Fall Scale indicates Low Risk Score (25-44 pts). Fall prevention measures have been instituted. Side Rails Up X 2 Placed close to Nursing Station Frequent Obs/Assesments occuring As available Patient and Family Educated on Fall Prevention Program and strategies. Assessment: 15:12 General: See triage assessment. jl7 16:00 Reassessment: No changes from previously documented assessment. Patient and/or family jl7 updated on plan of care and expected duration. Pain level reassessed. Patient is alert, oriented x 3, equal unlabored respirations, skin warm/dry/pink. 19:55 Reassessment: Spoke with patient at length and he states that he already has too many medical bills and does not know why he has to stay. I explained that he could go AMA if he wanted to that we could not hold him here if he didn't want to stay. States that he has seizures all the time and then just wakes up and goes about his business. Wants to contact family to pick him up. 20:00 Reassessment: Spoke to patient with FABIOLA Quezada and patient stated that he wants to ao leave AMA. Patient states that he always have seizure and he is not concern about his chest pain. patient states his pain may be related someone rubbing his chest when seize. 20:03 Reassessment: Called Ashely who identified as patient and stated that she would ao come to get patient. 20:17 Reassessment: Notified Dr Jara about pt leaving AMA. fc Vital Signs: 15:08 BP 127 / 92; Pulse 83; Resp 18 S; Pulse Ox 96% on R/A; Weight 72.57 kg (R); Height 6 jl7 ft. 2 in. (187.96 cm) (R); Pain 4/10; 15:45 BP 102 / 81; Pulse 67; Resp 16 S; Pulse Ox 98% on R/A; jl7 16:26 BP 110 / 80; Pulse 60; Resp 16 S; Pulse Ox 97% on R/A; jl7 17:48 BP 106 / 75; Pulse 52; Resp 18 S; Pulse Ox 99% on R/A; jl7 19:30 BP 117 / 76; Pulse 55; Resp 19; Pulse Ox 98% on R/A; ao 15:08 Body Mass Index 20.54 (72.57 kg, 187.96 cm) jl7 ED Course: 15:02 Patient arrived in ED. la1 15:04 Kassandra Chase, FABIOLA is Primary Nurse. jl7 15:06 Giovanni Abraham NP is PHCP. pm1 15:06 Thomas Ruano MD is Attending Physician. pm1 15:06 Triage completed. jl7 15:08 Arm band placed on right wrist. jl7 15:12 Patient has correct armband on for positive identification. Placed in gown. Bed in low jl7 position. Call light in reach. Side rails up X2. patient monitor on. Pulse ox on. NIBP on. 15:13 EKG done, by ED staff. mb4 16:43 XRAY Chest (1 view) In Process Unspecified. EDMS 16:55 X-ray completed. Portable x-ray completed in exam room. Patient tolerated procedure la2 well. 17:14 Warm blanket given. mb4 18:03 Bob Montelongo MD is Hospitalizing Provider. ma2 18:58 Primary Nurse role handed off by Kassandra Chase, FABIOLA jl7 19:53 Alo Sparks, FABIOLA is Primary Nurse. ao 20:50 No provider procedures requiring assistance completed. IV discontinued, intact, ao bleeding controlled, No redness/swelling at site. Pressure dressing applied. Administered Medications: No medications were administered Outcome: 18:03 Decision to Hospitalize by Provider. ma2 20:53 Admitted to Tele Other Patient was to be admitted to room 424 and decided to leave AMA. ao AMA form was sign and Dr Jara was notified by FABIOLA Quezada. Patient was advised to comeback to the ER if C/P increases 20:53 Condition: stable 20:56 Patient left the ED. ao Signatures: Dispatcher [employer] EDMS Pilar Horta RN RN fc Attema, Lee, RN RN la1 Alo Sparks RN Giovanni Lozano, SENIOR STRUCTURAL ENGINEER SENIOR STRUCTURAL ENGINEER pm1 Kassandra Chase RN RN jl7 Carol Cortés Mohammad, MD MD ma2 Teodora Grimm4 Corrections: (The following items were deleted from the chart) 20:01 15:08 Home Meds: Phenytoin Oral; garfield ceron
--- NOTE | 2018-01-25 18:04 | EDPHYS ---
Physician Documentation [facility] Name: Allan Swanson Jr Age: 57 yrs Sex: Male : 1960 Arrival Date: 01/25/2018 Time: 15:02 Bed 8 Private MD: ED Physician Thomas Ruano HPI: 01/25 17:07 This 57 yrs old Male presents to ER via EMS with complaints of chest pain, ma2 seizure. 17:07 The patient or guardian reports chest pain that is located primarily in the anterior ma2 chest wall, right. Onset: acutely, 1 hour(s) ago. The pain does not radiate. Associated signs and symptoms: Pertinent positives: seizure, Pertinent negatives: abdominal pain, lightheadedness, near syncope, shortness of breath, syncope. The chest pain is described as aching. Duration: The patient or guardian reports a single episode, that is now resolved. Severity of pain: At its worst the pain was moderate. hx of seizure, IVD use, takes all his medication here with seizure episode that lasted for 2 min, resolved spontaneously, has been taking all his seizures medicine, last seizure last year. he state he is also having chest pain that is right sided just started 10 min prior to arrival while in the EMS truck, never had chest pain or cardiac workup before . Historical: - Allergies: 15:08 NKDA; jl7 - Home Meds: 20:01 Phenytoin 100 mg Oral 3 tabs nightly [Active]; mavyret 100 40 mg 3 tab daily [Active]; fc omeprazole 40 mg Oral cpDR 1 cap once daily [Active]; - PMHx: 15:08 alcoholism (6 months sober); COPD; hepatits C; Seizures; jl7 - Immunization history:: Adult Immunizations not up to date. - Social history:: Smoking status: Patient uses tobacco products, smokes one-half pack cigarettes per day, Patient uses street drugs, IV drugs, Patient/guardian denies using The patient lives with family. - Ebola Screening: : No symptoms or risks identified at this time. - Family history:: not pertinent. ROS: 17:07 Cardiovascular: Positive for chest pain, Negative for edema, orthopnea, paroxysmal ma2 nocturnal dyspnea. 17:07 Neuro: Positive for seizure activity, Negative for dizziness, hearing loss, tingling, tremor, visual changes, weakness. 17:07 All other systems are negative. 18:03 ENT: Negative for injury, pain, and discharge. ma2 Exam: 17:07 Constitutional: This is a well developed, well nourished patient who is awake, alert, ma2 and in no acute distress. Head/Face: Normocephalic, atraumatic. Neck: Trachea midline, no thyromegaly or masses palpated, and no cervical lymphadenopathy. Supple, full range of motion without nuchal rigidity, or vertebral point tenderness. No Meningismus. Chest/axilla: Normal chest wall appearance and motion. Nontender with no deformity. No lesions are appreciated. Cardiovascular: Regular rate and rhythm with a normal S1 and S2. No gallops, murmurs, or rubs. Normal PMI, no JVD. No pulse deficits. Respiratory: Lungs have equal breath sounds bilaterally, clear to auscultation and percussion. No rales, rhonchi or wheezes noted. No increased work of breathing, no retractions or nasal flaring. Abdomen/GI: Soft, non-tender, with normal bowel sounds. No distension or tympany. No guarding or rebound. No evidence of tenderness throughout. Neuro: Awake and alert, GCS 15, oriented to person, place, time, and situation. Cranial nerves II-XII grossly intact. Motor strength 5/5 in all extremities. Sensory grossly intact. Cerebellar exam normal. Normal gait. Vital Signs: 15:08 BP 127 / 92; Pulse 83; Resp 18 S; Pulse Ox 96% on R/A; Weight 72.57 kg (R); Height 6 jl7 ft. 2 in. (187.96 cm) (R); Pain 4/10; 15:45 BP 102 / 81; Pulse 67; Resp 16 S; Pulse Ox 98% on R/A; jl7 16:26 BP 110 / 80; Pulse 60; Resp 16 S; Pulse Ox 97% on R/A; jl7 17:48 BP 106 / 75; Pulse 52; Resp 18 S; Pulse Ox 99% on R/A; jl7 19:30 BP 117 / 76; Pulse 55; Resp 19; Pulse Ox 98% on R/A; ao 15:08 Body Mass Index 20.54 (72.57 kg, 187.96 cm) 7 MDM: 15:18 Patient medically screened. pm1 17:07 Differential diagnosis: acute pericarditis, coronary artery disease chest wall pain, ma2 congestive heart failure gastroesophageal reflux disease (GERD). 18:01 HEART Score: History: Moderately Suspicious (1), ECG: Normal (0), Age: > 45 and < 65 ma2 years (1), Risk Factors: 1 or 2 risk factors (1), Troponin: < or = 1 x Normal Limit (0). Data reviewed: vital signs, nurses notes, lab test result(s). Counseling: I had a detailed discussion with the patient and/or guardian regarding: the historical points, exam findings, and any diagnostic results supporting the discharge/admit diagnosis, the presence of at least one elevated blood pressure reading (>120/80) during this emergency department visit, the need for further work-up and treatment in the hospital. ED course: seizure is likely break through seizure, will admit for ACS rule out, discussed and accepted by Dr. Montelongo. 01/25 15:26 Order name: Basic Metabolic Panel; Complete Time: 17: health system 01/25 15:26 Order name: CBC with Diff; Complete Time: 17: ny01/25 15:26 Order name: Ckmb; Complete Time: 17:05 health system 01/25 15:26 Order name: CPK; Complete Time: 17: ny01/25 15:26 Order name: LFT's; Complete Time: 17:05 ny01/25 15:26 Order name: Magnesium; Complete Time: 17:05 health system 01/25 15:26 Order name: NT PRO-BNP; Complete Time: 17:05 health system 01/25 15:26 Order name: PT-INR health system 01/25 15:26 Order name: Ptt, Activated 01/25 15:26 Order name: Troponin (emerg Dept Use Only); Complete Time: 17:05 health system 01/25 15:26 Order name: XRAY Chest (1 view); Complete Time: 17:12 ny01/25 15:26 Order name: EKG; Complete Time: 15:27 ny01/25 15:26 Order name: Cardiac monitoring; Complete Time: 18:16 health system 01/25 17:12 Order name: Phenytoin (dilantin) health system 01/25 15:26 Order name: EKG - Nurse/Tech; Complete Time: 18:16 health system 01/25 15:26 Order name: IV Saline Lock; Complete Time: 18:16 health system 01/25 15:26 Order name: Labs collected and sent; Complete Time: 18:16 health system 01/25 15:26 Order name: O2 Per Protocol; Complete Time: 18:16 health system 01/25 15:26 Order name: O2 Sat Monitoring; Complete Time: 18: Administered Medications: No medications were administered Disposition: 01/25/18 18:03 Hospitalization ordered by Bob Montelongo for Observation. Preliminary diagnosis is Chest pain, unspecified. - Bed requested for Telemetry/MedSurg (observation). - Status is Observation. ao - Condition is Stable. - Problem is new. - Symptoms are unchanged. UTI on Admission? No Signatures: Dispatcher [employer] EDMS Lindsay Owens RN RN mw Woody, Diana RN Pilar Briones RN RN fc Ortiz, Alex RN Giovanni Lozano NP EVP GENERAL COUNSEL pm1 Kassandra Chase RN RN jl7 Thomas Ruano MD MD ma2 Corrections: (The following items were deleted from the chart) 18:10 18:03 Hospitalization Ordered by Bob Montelongo MD for Observation. Preliminary diagnosis ma2 is Chest pain, unspecified. Bed requested for Telemetry/MedSurg (observation). Status is Observation. Condition is Stable. Problem is new. Symptoms are unchanged. UTI on Admission? No. ma2 19:22 18:10 01/25/2018 18:03 Hospitalization Ordered by Bob Montelongo MD for Observation. evaristo Preliminary diagnosis is Chest pain, unspecified. Bed requested for Telemetry/MedSurg (observation). Status is Observation. Condition is Stable. Problem is new. Symptoms are unchanged. UTI on Admission? No. ma2 20:01 15:08 Home Meds: Phenytoin Oral; jl7 20:55 19:22 01/25/2018 18:03 Hospitalization Ordered by Bob Montelongo MD for Observation. mw Preliminary diagnosis is Chest pain, unspecified. Bed requested for Telemetry/MedSurg (observation). Status is Observation. Condition is Stable. Problem is new. Symptoms are unchanged. UTI on Admission? No. dw 20:56 20:55 01/25/2018 18:03 Hospitalization Ordered by Bob Montelongo MD for Observation. ao Preliminary diagnosis is Chest pain, unspecified. Bed requested for Telemetry/MedSurg (observation). Status is Observation. Condition is Stable. Problem is new. Symptoms are unchanged. UTI on Admission? No. mw
--- NOTE | 2018-01-26 04:11 | P.HP ---
Certification for Inpatient Patient admitted to: Observation With expected LOS: <2 Midnights Patient will require the following post-hospital care: None Practitioner: I am a practitioner with admitting privileges, knowledge of patient current condition, hospital course, and medical plan of care. 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 He has been using synthetic marijuana according to the ER physician. However patient decided to leave against medical advice. Allergies No Known Drug Allergies Allergy (Verified 12/19/17 15:12) Unknown Home Medications: levETIRAcetam [Keppra*] 500 mg PO BID #180 tab 01/03/17 Phenytoin Sodium Extended [Dilantin] 300 mg PO BEDTIME 02/18/17 Ciprofloxacin HCl [Cipro 500 MG Tablet] 500 mg PO BID #12 tab 02/19/17 Codeine/APAP [Tylenol #3*] 1 tab PO Q4HP PRN #30 tab 02/19/17 Amoxicillin 500 mg PO BID 12/19/17 Clarithromycin [Biaxin] 500 mg PO BID 12/19/17 Omeprazole [Prilosec] 40 mg PO BID 12/19/17 - Past Medical/Surgical History Diabetic: No -: COPD -: seizure -: Tobacco abuse -: Lung mass -: Weight loss -: Left knee surgery -: growth on rectum noncancerous - Family History Father Medical History: Hypertension, Lung disease Mother Medical History: Lung disease Sister Medical History: Stroke, Cancer - Social History Alcohol use: Yes CD- Drugs: Yes Review of Systems is unable to be obtained Physical Examination - Vital Signs Temperature: 98 F Blood Pressure: 117/76 Pulse: 55 Respirations: 19 Pulse Ox (%): 98 - Physical Exam General: Alert, In no apparent distress, Oriented x3 - Studies Laboratory Data (last 24 hrs) 01/26/18 05:00: Sodium Cancelled, Potassium Cancelled, BUN Cancelled, Creatinine Cancelled, Glucose Cancelled 01/26/18 05:00: WBC Cancelled, Hgb Cancelled, Hct Cancelled, Plt Count Cancelled 01/26/18 03:00: Troponin I Cancelled 01/25/18 19:00: Troponin I Cancelled 01/25/18 16:11: WBC 9.1, Hgb 16.1, Hct 45.9, Plt Count 186 01/25/18 16:11: Sodium 139, Potassium 4.4, BUN 11, Creatinine 0.90, Glucose 81, Magnesium 2.2, Total Bilirubin 0.4, AST 28, ALT 35, Alkaline Phosphatase 137 H 01/25/18 15:26: PT Cancelled, INR Cancelled, APTT Cancelled Assessment & Plan - Plan Assessment: 1. 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 Observation with seizure precautions; however, patient decided to leave against medical advice. Advised the nurses to recommend to patient to follow up with his PCP as soon as possible - Advance Directives Does patient have a Living Will: No Does patient have a Durable POA for Healthcare: No - Code Status/Comfort Care Code Status Assessed: Yes Code Status: Full Code Critical Care: No Home Medications: levETIRAcetam [Keppra*] 500 mg PO BID #180 tab 01/03/17 Phenytoin Sodium Extended [Dilantin] 300 mg PO BEDTIME 02/18/17 Ciprofloxacin HCl [Cipro 500 MG Tablet] 500 mg PO BID #12 tab 02/19/17 Codeine/APAP [Tylenol #3*] 1 tab PO Q4HP PRN #30 tab 02/19/17 Amoxicillin 500 mg PO BID 12/19/17 Clarithromycin [Biaxin] 500 mg PO BID 12/19/17 Omeprazole [Prilosec] 40 mg PO BID 12/19/17 Patient Discharge Instructions: Patient left against medical advice Followup: Edu Smith MD [Primary Care Provider] - Prvt As Needed Time spent managing pt's care (in minutes): 10
--- NOTE | 2018-01-26 06:52 | EKG ---
Test Date: 2018-01-25 Test Time: 15:12:05 [employer]: MB MEASUREMENT RESULTS: Intervals: Rate: 69 MO: 158 QRSD: 86 QT: 396 QTc: 424 Forsan: P: 68 MO: 158 QRS: -18 T: 62 INTERPRETIVE STATEMENTS: Normal sinus rhythm Normal ECG Compared to ECG 12/19/2017 09:39:04 No significant changes Electronically Signed On 01-26-18 06:51:00 CDT by Krzysztof Mackenzie
== END | disposition left against medical advice (07) | DRG 101 ==
LOC: ER 15:00 → ERHOLD 18:11 → UNDOADMOB 18:11 → UNDODISIN 20:55
PROVIDERS: ADMIT Hospitalist; ATTEND Hospitalist
DX: R56.9 Unspecified convulsions (principal); F12.90 Cannabis use, unspecified, uncomplicated; J44.9 Chronic obstructive pulmonary disease, unspecified
CPT/HCPCS: 36415; 71045; 80048; 80076; 82550; 82553; 83735; 83880; 84484; 85025; 93005; 99285

== ENCOUNTER 2018-03-25 03:29 | Emergency (ER) | payer MEDICARE ==
--- NOTE | 2018-03-25 05:03 | ER ---
Nurse's Notes [facility] Name: Allan Swanson Jr Age: 57 yrs Sex: Male : 1960 Arrival Date: 03/25/2018 Time: 03:30 Bed 16 Private MD: Diagnosis: Epilepsy and recurrent seizures Presentation: 03/25 03:33 Presenting complaint: EMS states: pt's sister called reporting that pt had a seizure. aa1 Upon EMS arrival to scene pt alert but slightly confused. Family states pt has hx of seizures and is currently taking phenytoin. Upon arrival to ED pt A\\T\\Ox4 with no complaints. States, "I really don't wanna be here.". Transition of care: patient was not received from another setting of care. Onset of symptoms was March 25, 2018. Risk Assessment: Do you want to hurt yourself or someone else? Patient reports no desire to harm self or others. Initial Sepsis Screen: Does the patient meet any 2 criteria? No. Patient's initial sepsis screen is negative. Does the patient have a suspected source of infection? No. Patient's initial sepsis screen is negative. Care prior to arrival: Glucose check: 140 Oxygen administered. via nasal cannula. 03:33 Method Of Arrival: EMS: [facility] aa1 03:33 Acuity: ARSLAN 3 aa1 Historical: - Allergies: 03:39 NKDA; aa1 - Home Meds: 03:39 mavyret 100 40 mg 3 tab daily [Active]; omeprazole 40 mg Oral cpDR 1 cap once daily aa1 [Active]; Phenytoin 100 mg Oral 3 tabs nightly [Active]; - PMHx: 03:39 Seizures; hepatits C; COPD; alcoholism (6 months sober); aa1 - PSHx: 03:39 None; aa1 - Immunization history:: Flu vaccine is up to date. - Social history:: Smoking status: Patient uses tobacco products, smokes one pack cigarettes per day. - Ebola Screening: : No symptoms or risks identified at this time Patient denies exposure to infectious person Patient denies travel to an Ebola-affected area in the 21 days before illness onset. Screenin:36 Abuse screen: Denies threats or abuse. Nutritional screening: No deficits noted. ea Tuberculosis screening: No symptoms or risk factors identified. 03:41 Fall Risk None identified. aa1 Assessment: 03:41 General: Appears in no apparent distress. comfortable, unkempt, Behavior is calm, aa1 cooperative, appropriate for age. Pain: Denies pain. Neuro: Level of Consciousness is awake, alert, obeys commands, Oriented to person, place, time, situation, Moves all extremities. Full function Speech is normal, Facial symmetry appears normal, Pupils are PERRLA. Neuro: Seizure activity reported prior to arrival. Cardiovascular: Denies chest pain, diaphoresis, palpitations. Respiratory: Airway is patent Respiratory effort is even, unlabored, Respiratory pattern is regular, symmetrical. GI: No signs and/or symptoms were reported involving the gastrointestinal system. : No signs and/or symptoms were reported regarding the genitourinary system. EENT: No signs and/or symptoms were reported regarding the EENT system. Derm: Skin is intact, is healthy with good turgor, Skin is pink, warm \\T\\ dry. Musculoskeletal: Circulation, motion, and sensation intact. Capillary refill < 3 seconds. 04:00 Reassessment: Patient and/or family updated on plan of care and expected duration. Pain ea level reassessed. Patient is alert, oriented x 3, equal unlabored respirations, skin warm/dry/pink. 05:00 Reassessment: Patient and/or family updated on plan of care and expected duration. Pain ea level reassessed. Patient is alert, oriented x 3, equal unlabored respirations, skin warm/dry/pink. Discharge instructions given to patient, verbalized the understanding of instruction. Pt discharged to [facility], awaiting on family for transportation. Vital Signs: 03:34 BP 114 / 80; Pulse 74; Resp 18; Temp 97.8; Pulse Ox 96% on R/A; Weight 70.31 kg; Height ea 6 ft. 2 in. (187.96 cm); Pain 0/10; 04:00 BP 110 / 90; Pulse 70; Resp 18; Pulse Ox 95% on R/A; ea 05:04 BP 124 / 91; Pulse 70; Resp 18; Pulse Ox 96% on R/A; ea 03:34 Body Mass Index 19.90 (70.31 kg, 187.96 cm) ea ED Course: 03:30 Patient arrived in ED. ds1 03:32 Aftab Hartman MD is Attending Physician. gs 03:32 Laurie Self, RN is Primary Nurse. aa1 03:36 Triage completed. aa1 03:37 Seizure precautions initiated. ea 03:37 Arm band placed on right wrist. Patient placed in an exam room, on a stretcher, on ea pulse oximetry. 05:01 Chandler Cruz MD is Referral Physician. gs 05:05 No provider procedures requiring assistance completed. Patient did not have IV access ea during this emergency room visit. Administered Medications: 03:54 Drug: Dilantin 300 mg {Note: pt had home medications at bedside and was given 300 mg of aa1 his Dilantin he brought from home.} Route: PO; 05:08 Follow up: Response: No adverse reaction aa1 Outcome: 05:02 Discharge ordered by . 05:08 Discharged to home ambulatory. aa1 05:08 Condition: good 05:08 Discharge instructions given to patient, Instructed on discharge instructions, follow up and referral plans. medication usage, Demonstrated understanding of instructions, follow-up care, medications. 05:09 Patient left the ED. aa1 Signatures: Laurie Self, FABIOLA RN [email or web address] Annalisa Valenzuela ds1 Corinne Ramesh RN RN Aftab Frye MD MD
--- NOTE | 2018-03-25 05:03 | EDPHYS ---
Physician Documentation [facility] Name: Allan Swanson Jr Age: 57 yrs Sex: Male : 1960 Arrival Date: 03/25/2018 Time: 03:30 Bed 16 Private MD: ED Physician Aftab Hartman HPI: 03/25 03:42 This 57 yrs old Male presents to ER via EMS with complaints of Seizure. gs 03:42 The patient presents after having a single isolated seizure. Seizure onset: just prior gs to arrival. Context: the seizure(s) was witnessed, by family, occurred at home, occurred while the patient was at rest. Seizure Hx: Last seizure: The patient's last seizure was approximately 1 month(s) ago. Associated injury: The patient did not suffer any apparent associated injury. The patient has experienced similar episodes in the past, several times. Historical: - Allergies: 03:39 NKDA; aa1 - Home Meds: 03:39 mavyret 100 40 mg 3 tab daily [Active]; omeprazole 40 mg Oral cpDR 1 cap once daily aa1 [Active]; Phenytoin 100 mg Oral 3 tabs nightly [Active]; - PMHx: 03:39 Seizures; hepatits C; COPD; alcoholism (6 months sober); aa1 - PSHx: 03:39 None; aa1 - Immunization history:: Flu vaccine is up to date. - Social history:: Smoking status: Patient uses tobacco products, smokes one pack cigarettes per day. - Ebola Screening: : No symptoms or risks identified at this time Patient denies exposure to infectious person Patient denies travel to an Ebola-affected area in the 21 days before illness onset. ROS: 03:42 All other systems are negative. gs Exam: 03:42 Head/Face: Normocephalic, atraumatic. Eyes: Pupils equal round and reactive to light, gs extra-ocular motions intact. Lids and lashes normal. Conjunctiva and sclera are non-icteric and not injected. Cornea within normal limits. Periorbital areas with no swelling, redness, or edema. ENT: Nares patent. No nasal discharge, no septal abnormalities noted. Tympanic membranes are normal and external auditory canals are clear. Oropharynx with no redness, swelling, or masses, exudates, or evidence of obstruction, uvula midline. Mucous membranes moist. Neck: Trachea midline, no thyromegaly or masses palpated, and no cervical lymphadenopathy. Supple, full range of motion without nuchal rigidity, or vertebral point tenderness. No Meningismus. Chest/axilla: Normal chest wall appearance and motion. Nontender with no deformity. No lesions are appreciated. Cardiovascular: Regular rate and rhythm with a normal S1 and S2. No gallops, murmurs, or rubs. Normal PMI, no JVD. No pulse deficits. Respiratory: Lungs have equal breath sounds bilaterally, clear to auscultation and percussion. No rales, rhonchi or wheezes noted. No increased work of breathing, no retractions or nasal flaring. Abdomen/GI: Soft, non-tender, with normal bowel sounds. No distension or tympany. No guarding or rebound. No evidence of tenderness throughout. Back: No spinal tenderness. No costovertebral tenderness. Full range of motion. Skin: Warm, dry with normal turgor. Normal color with no rashes, no lesions, and no evidence of cellulitis. MS/ Extremity: Pulses equal, no cyanosis. Neurovascular intact. Full, normal range of motion. Neuro: Awake and alert, GCS 15, oriented to person, place, time, and situation. Cranial nerves II-XII grossly intact. Motor strength 5/5 in all extremities. Sensory grossly intact. Cerebellar exam normal. Normal gait. 03:42 Constitutional: The patient appears alert, awake. Vital Signs: 03:34 BP 114 / 80; Pulse 74; Resp 18; Temp 97.8; Pulse Ox 96% on R/A; Weight 70.31 kg; Height ea 6 ft. 2 in. (187.96 cm); Pain 0/10; 04:00 BP 110 / 90; Pulse 70; Resp 18; Pulse Ox 95% on R/A; ea 05:04 BP 124 / 91; Pulse 70; Resp 18; Pulse Ox 96% on R/A; ea 03:34 Body Mass Index 19.90 (70.31 kg, 187.96 cm) ea MDM: 03:40 Patient medically screened. gs 03:42 Differential diagnosis: seizure. Data reviewed: vital signs, nurses notes. Response to gs treatment: the patient's symptoms have markedly improved after treatment, and as a result, I will discharge patient. 11/14 03:41 Order name: Dilantin; Complete Time: 05:02 Administered Medications: 03:54 Drug: Dilantin 300 mg {Note: pt had home medications at bedside and was given 300 mg of aa1 his Dilantin he brought from home.} Route: PO; 05:08 Follow up: Response: No adverse reaction aa1 Disposition: 03/25/18 05:02 Discharged to Home. Impression: Epilepsy and recurrent seizures. - Condition is Stable. - Discharge Instructions: Seizure, Adult. - Medication Reconciliation Form, Thank You Letter, Antibiotic Education, Prescription Opioid Use form. - Follow up: Chandler Cruz MD; When: 2 - 3 days; Reason: Re-evaluation by your physician. - Notes: increase dilantin 400 at night see neurology or pcp for level Signatures: Dispatcher [employer] EDMS Laurie Self RN RN aa1 Corinne Ramesh RN RN ea Aftab Hartman MD MD gs Corrections: (The following items were deleted from the chart) 05:09 05:02 03/25/2018 05:02 Discharged to Home. Impression: Epilepsy and recurrent seizures. aa1 Condition is Stable. Forms are Medication Reconciliation Form, Thank You Letter, Antibiotic Education, Prescription Opioid Use. Follow up: Chandler Cruz; When: 2 - 3 days; Reason: Re-evaluation by your physician.
== END 2018-03-25 05:09 | disposition home or self-care (01) ==
LOC: ER 03:29
DX: G40.802 Other epilepsy, not intractable, without status epilepticus (principal); J44.9 Chronic obstructive pulmonary disease, unspecified; F17.210 Nicotine dependence, cigarettes, uncomplicated
CPT/HCPCS: 36415; 80185; 99283

== ENCOUNTER 2018-04-22 01:01 | Emergency (ER) | payer MEDICARE ==
[2018-04-22 01:36] LABS: Absolute Lymphocytes (CBC) 2.2 K/uL (0.7-4.9); Absolute Monocytes 0.6 K/uL (0.1-1.3); Eosinophils % 2.8 % (0-4.4); Hematocrit 46.3 % (39.6-49.0); Lymphocytes % 31.2 % (15.3-44.8); MCH 32.9 pg (27.0-35.0); MCV 94.3 fL (80-100); MPV 8.5 fL (7.6-11.3); Monocytes % 8.7 % (3.3-12.3); RBC Red Blood Cell Count 4.91 M/uL (4.33-5.43)
[2018-04-22] MEDS ORDERED: THIAMINE 200 MG/2 ML INJ ONE (01:38)
[2018-04-22] MEDS ORDERED: LORazepam 2 MG/ML VIAL ONE (01:38)
[2018-04-22] MEDS ORDERED: NA CHLORIDE 0.9% 1,000 ML ONE (01:40)
[2018-04-22] MEDS ORDERED: FOSPHENYTOIN PE 500 MG/10 ML VIAL ONE (01:40)
[2018-04-22] MEDS ORDERED: NA CHLORIDE 0.9% 100 ML IV ONE (01:41)
[2018-04-22] MEDS ORDERED: NA CHLORIDE 0.9% 50 ML IV ONE (01:42)
[2018-04-22 01:43] LABS: Protime INR 1.03
[2018-04-22 02:15] LABS: ALT/SGPT 21 U/L (12-78); AST/SGOT 19 U/L (15-37); Alkaline Phosphatase 150 U/L (45-117); BUN Blood Urea Nitrogen 17 mg/dL (7-18); Bicarbonate 24 mmol/L (21-32); Bilirubin Direct 0.1 mg/dL (0-0.2); Bilirubin Total 0.2 mg/dL (0.2-1.0); Glucose Level 91 mg/dL (74-106); Magnesium 2.4 mg/dL (1.8-2.4); Potassium 3.6 mmol/L (3.5-5.1); Protein, Total 8.4 g/dL (6.4-8.2); Sodium Level 139 mmol/L (136-145); Troponin (Emerg Dept Use Only) < 0.02 ng/mL (0.0-0.045)
[2018-04-22 03:50] LABS: Barbiturates NEGATIVE (NEGATIVE); Benzodiazepines NEGATIVE (NEGATIVE); Cocaine NEGATIVE (NEGATIVE); METHAMPHETAM NEGATIVE (NEGATIVE); Methadone NEGATIVE (NEGATIVE); Opiates NEGATIVE (NEGATIVE); Phencyclidine NEGATIVE (NEGATIVE); THC Cannibis NEGATIVE (NEGATIVE)
--- NOTE | 2018-04-22 04:33 | ER ---
Nurse's Notes [facility] Name: Allan Swanson Jr Age: 57 yrs Sex: Male : 1960 Arrival Date: 04/22/2018 Time: 01:03 Bed 6 Private MD: Diagnosis: Epilepsy and recurrent seizures Presentation: 04/22 01:03 Presenting complaint: EMS states: Pt had a seizure approx 45 mins ago, EMS states it tl2 took pt about 20 minutes to become fully oriented. BGL was 70, EMS gave tube of oral glucose. Pt is agitated in triage. Transition of care: patient was not received from another setting of care. Onset of symptoms was April 22, 2018 at 00:00. Risk Assessment: Do you want to hurt yourself or someone else? Patient reports no desire to harm self or others. Initial Sepsis Screen: Does the patient meet any 2 criteria? No. Patient's initial sepsis screen is negative. Does the patient have a suspected source of infection? No. Patient's initial sepsis screen is negative. Care prior to arrival: Medication(s) given: tube oral glucose. 01:03 Method Of Arrival: EMS: [facility] tl2 01:03 Acuity: ARSLAN 3 tl2 Triage Assessment: 01:06 General: Appears in no apparent distress. uncomfortable, unkempt, Behavior is agitated. tl2 Pain: Denies pain. Neuro: Level of Consciousness is awake, alert, obeys commands, Oriented to person, place, time, situation, Seizure activity reported prior to arrival. Cardiovascular: Denies chest pain. Respiratory: Airway is patent Respiratory effort is even, unlabored, Respiratory pattern is regular, symmetrical. GI: No signs and/or symptoms were reported involving the gastrointestinal system. : No signs and/or symptoms were reported regarding the genitourinary system. Derm: Skin is pink, warm \T\ dry. Historical: - Allergies: 01: NKDA; tl2 - Home Meds: 01: mavyret 100 40 mg 3 tab daily [Active]; omeprazole 40 mg Oral cpDR 1 cap once daily tl2 [Active]; Phenytoin 100 mg Oral 3 tabs nightly [Active]; - PMHx: 01:06 alcoholism (6 months sober); COPD; hepatits C; Seizures; tl2 - Immunization history:: Adult Immunizations up to date. - Social history:: Smoking status: Patient uses tobacco products, smokes one pack cigarettes per day. - Ebola Screening: : No symptoms or risks identified at this time. - Family history:: not pertinent. Screenin:09 Abuse screen: Denies threats or abuse. Nutritional screening: No deficits noted. tl2 Tuberculosis screening: No symptoms or risk factors identified. Fall Risk Fall in past 12 months (25 points). Assessment: 01:15 General: Appears in no apparent distress. comfortable, Behavior is calm, cooperative, rr5 appropriate for age. 01:15 Pain: Denies pain. Neuro: Level of Consciousness is awake, alert, obeys commands, rr5 Oriented to person, place, time, situation. Cardiovascular: Capillary refill < 3 seconds Patient's skin is warm and dry. Respiratory: Airway is patent Respiratory effort is even, unlabored, Respiratory pattern is regular, symmetrical. GI: : No signs and/or symptoms were reported regarding the genitourinary system. EENT: No signs and/or symptoms were reported regarding the EENT system. Derm: Skin is intact, Skin temperature is warm. Musculoskeletal: Capillary refill < 3 seconds, Range of motion:. 02:00 Reassessment: Patient appears in no apparent distress at this time. Patient and/or rr5 family updated on plan of care and expected duration. Pain level reassessed. 02:59 Reassessment: Patient appears in no apparent distress at this time. Patient and/or rr5 family updated on plan of care and expected duration. Pain level reassessed. asleep on bed comfortably. 03:55 Reassessment: Patient appears in no apparent distress at this time. Patient states rr5 feeling better. Patient states symptoms have improved. 04:50 Reassessment: review done discharge instruction given and explained without complaints rr5 made. Vital Signs: 01:06 BP 139 / 84; Pulse 89; Resp 18; Temp 97.3(TE); Pulse Ox 92% on R/A; Weight 70.31 kg; tl2 Height 6 ft. 2 in. (187.96 cm); Pain 0/10; 02:01 BP 128 / 91; Pulse 83; Resp 18; Pulse Ox 95% on R/A; tl2 03:00 BP 119 / 77; Pulse 88; Resp 18; Temp 98.1; Pulse Ox 99% ; rr5 04:40 BP 136 / 70; Pulse 85; Resp 20; Pulse Ox 99% on R/A; rr5 01:06 Body Mass Index 19.90 (70.31 kg, 187.96 cm) tl2 Faraz Coma Score: 01:06 Eye Response: spontaneous(4). Verbal Response: oriented(5). Motor Response: obeys tl2 commands(6). Total: 15. 01:15 Eye Response: spontaneous(4). Verbal Response: oriented(5). Motor Response: obeys rr5 commands(6). Total: 15. ED Course: 01:03 Patient arrived in ED. tl2 01:05 Triage completed. tl2 01:06 Arm band placed on right wrist. tl2 01:09 Patient has correct armband on for positive identification. Placed in gown. Bed in low tl2 position. Call light in reach. Side rails up X2. Seizure precautions initiated. 01:11 Jason Hutson MD is Attending Physician. rupa 01:15 Pulse ox on. NIBP on. rr5 01:15 Inserted saline lock: 22 gauge in right antecubital area, using aseptic technique. rr5 Blood collected. inserted by gale HICKS. 01:31 X-ray completed. Portable x-ray completed in exam room. Patient tolerated procedure kw well. 01:32 XRAY Chest (1 view) In Process Unspecified. EDMS 01:56 Farzad Wilson, FABIOLA is Primary Nurse. rr5 04:33 Chandler Cruz MD is Referral Physician. rupa 05:01 No provider procedures requiring assistance completed. IV discontinued, intact, rr5 bleeding controlled. Administered Medications: 01:40 Drug: Fosphenytoin 500 mg Route: IVPB; Site: right antecubital; rr5 02:10 Follow up: Response: No adverse reaction; IV Status: Completed infusion; IV Intake: rr5 100ml 02:14 Follow up: Response: No adverse reaction; IV Status: Completed infusion rr5 01:40 Drug: NS 0.9% 500 ml Route: IV; Rate: bolus; Site: right antecubital; rr5 02:20 Follow up: Response: No adverse reaction; IV Status: Completed infusion; IV Intake: rr5 500ml 01:46 Drug: Ativan 1 mg Route: IVP; Site: right antecubital; rr5 04:59 Follow up: Response: No adverse reaction rr5 02:15 Drug: Thiamine 100 mg Route: IV; Rate: bolus; Site: right antecubital; rr5 02:45 Follow up: Response: No adverse reaction; IV Status: Completed infusion; IV Intake: [id number] 02:15 Drug: NS 0.9% 1000 ml Route: IV; Rate: 125 ml/hr; Site: right antecubital; rr5 04:59 Follow up: Response: No adverse reaction; IV Status: Order to discontinue infusion; IV rr5 Intake: 375ml 04:40 Drug: Dilantin 200 mg Route: PO; rr5 04:55 Follow up: Response: Medication administered at discharge. rr5 Intake: 02:10 IV: 100ml; Total: 100ml. rr5 02:20 IV: 500ml; Total: 600ml. rr5 02:45 IV: 50ml; Total: 650ml. rr5 04:59 IV: 375ml; Total: 1025ml. rr5 Output: 03:14 Urine: 350ml (Voided); Total: 350ml. rr5 Outcome: 04:33 Discharge ordered by . rupa 05:01 Discharged to home ambulatory. rr5 05:01 Condition: stable 05:01 Discharge instructions given to patient, Instructed on discharge instructions, follow up and referral plans. medication usage, Demonstrated understanding of instructions, follow-up care, medications, Prescriptions given X 1. 05:02 Patient left the ED. rr5 Signatures: Dispatcher [employer] Jason Bedoya MD MD cha Whitley, Kimberlee kw Knox, Taylor, RN RN tl2 Farzad Wilson RN RN rr5
--- NOTE | 2018-04-22 04:34 | EDPHYS ---
Physician Documentation [facility] Name: Allan Swanson Jr Age: 57 yrs Sex: Male : 1960 Arrival Date: 04/22/2018 Time: 01:03 Bed 6 Private MD: Jason Ma HPI: 04/22 01:22 This 57 yrs old Male presents to ER via EMS with complaints of Probable rupa Seizure. 01:22 The patient presents after having a single isolated seizure, that lasted 30 minute(s). rupa Character of seizure(s): Loss of consciousness: the patient experienced loss of consciousness, Motor activity: generalized, Incontinence: none, Apnea: the patient did not experience apnea, Circulation: the patient did not experience evidence of pulse disturbance. Seizure onset: just prior to arrival. Context: the seizure(s) was witnessed, by no one, occurred at home. Seizure Hx: Original onset: longstanding, Cause: unknown. Associated injury: The patient did not suffer any apparent associated injury. The patient has not experienced similar symptoms in the past. Historical: - Allergies: 01: NKDA; tl2 - Home Meds: 01:06 mavyret 100 40 mg 3 tab daily [Active]; omeprazole 40 mg Oral cpDR 1 cap once daily tl2 [Active]; Phenytoin 100 mg Oral 3 tabs nightly [Active]; - PMHx: 01:06 alcoholism (6 months sober); COPD; hepatits C; Seizures; tl2 - Immunization history:: Adult Immunizations up to date. - Social history:: Smoking status: Patient uses tobacco products, smokes one pack cigarettes per day. - Ebola Screening: : No symptoms or risks identified at this time. - Family history:: not pertinent. ROS: 01:22 Constitutional: Negative for fever, chills, and weight loss, Eyes: Negative for injury, rupa pain, redness, and discharge, ENT: Negative for injury, pain, and discharge, Neck: Negative for injury, pain, and swelling, Cardiovascular: Negative for chest pain, palpitations, and edema, Respiratory: Negative for shortness of breath, cough, wheezing, and pleuritic chest pain, Abdomen/GI: Negative for abdominal pain, nausea, vomiting, diarrhea, and constipation, Back: Negative for injury and pain, : Negative for injury, bleeding, discharge, and swelling, MS/Extremity: Negative for injury and deformity, Skin: Negative for injury, rash, and discoloration, Psych: Negative for depression, anxiety, suicide ideation, homicidal ideation, and hallucinations, Allergy/Immunology: Negative for hives, rash, and allergies, Endocrine: Negative for neck swelling, polydipsia, polyuria, polyphagia, and marked weight changes, Hematologic/Lymphatic: Negative for swollen nodes, abnormal bleeding, and unusual bruising. Neuro: Positive for seizure activity. Exam: Constitutional: This is a well developed, well nourished patient who is awake, alert, rupa and in no acute distress. Head/Face: Normocephalic, atraumatic. Eyes: Pupils equal round and reactive to light, extra-ocular motions intact. Lids and lashes normal. Conjunctiva and sclera are non-icteric and not injected. Cornea within normal limits. Periorbital areas with no swelling, redness, or edema. ENT: Nares patent. No nasal discharge, no septal abnormalities noted. Tympanic membranes are normal and external auditory canals are clear. Oropharynx with no redness, swelling, or masses, exudates, or evidence of obstruction, uvula midline. Mucous membranes moist. Neck: Trachea midline, no thyromegaly or masses palpated, and no cervical lymphadenopathy. Supple, full range of motion without nuchal rigidity, or vertebral point tenderness. No Meningismus. Chest/axilla: Normal chest wall appearance and motion. Nontender with no deformity. No lesions are appreciated. Cardiovascular: Regular rate and rhythm with a normal S1 and S2. No gallops, murmurs, or rubs. Normal PMI, no JVD. No pulse deficits. Respiratory: Lungs have equal breath sounds bilaterally, clear to auscultation and percussion. No rales, rhonchi or wheezes noted. No increased work of breathing, no retractions or nasal flaring. Abdomen/GI: Soft, non-tender, with normal bowel sounds. No distension or tympany. No guarding or rebound. No evidence of tenderness throughout. Back: No spinal tenderness. No costovertebral tenderness. Full range of motion. Male : Normal genitalia with no discharge or lesions. Skin: Warm, dry with normal turgor. Normal color with no rashes, no lesions, and no evidence of cellulitis. MS/ Extremity: Pulses equal, no cyanosis. Neurovascular intact. Full, normal range of motion. Neuro: Awake and alert, GCS 15, oriented to person, place, time, and situation. Cranial nerves II-XII grossly intact. Motor strength 5/5 in all extremities. Sensory grossly intact. Cerebellar exam normal. Normal gait. Psych: Awake, alert, with orientation to person, place and time. Behavior, mood, and affect are within normal limits. Vital Signs: 01:06 BP 139 / 84; Pulse 89; Resp 18; Temp 97.3(TE); Pulse Ox 92% on R/A; Weight 70.31 kg; tl2 Height 6 ft. 2 in. (187.96 cm); Pain 0/10; 02:01 BP 128 / 91; Pulse 83; Resp 18; Pulse Ox 95% on R/A; tl2 03:00 BP 119 / 77; Pulse 88; Resp 18; Temp 98.1; Pulse Ox 99% ; rr5 04:40 BP 136 / 70; Pulse 85; Resp 20; Pulse Ox 99% on R/A; rr5 01:06 Body Mass Index 19.90 (70.31 kg, 187.96 cm) tl2 Faraz Coma Score: 01:06 Eye Response: spontaneous(4). Verbal Response: oriented(5). Motor Response: obeys tl2 commands(6). Total: 15. 01:15 Eye Response: spontaneous(4). Verbal Response: oriented(5). Motor Response: obeys rr5 commands(6). Total: 15. MDM: 01:13 Patient medically screened. [facility] 01:24 Data reviewed: vital signs, nurses notes, lab test result(s), EKG, radiologic studies, rupa plain films. 04/22 01:13 Order name: Basic Metabolic Panel; Complete Time: 04:07 [facility] 04/22 01:13 Order name: CBC with Diff; Complete Time: 04:07 [facility] 04/22 01:13 Order name: LFT's; Complete Time: 04:07 [facility] 04/22 01:13 Order name: Magnesium; Complete Time: 04:07 [facility] 04/22 01:13 Order name: PT-INR; Complete Time: 04:07 [facility] 04/22 01:13 Order name: Troponin (emerg Dept Use Only); Complete Time: 04:07 [facility] 04/22 01:13 Order name: Acetaminophen; Complete Time: 04:07 [facility] 04/22 01:13 Order name: ETOH Level; Complete Time: 04:07 [facility] 04/22 01:13 Order name: Ptt, Activated; Complete Time: 04:07 [facility] 04/22 01:13 Order name: Salicylate; Complete Time: 04:07 [facility] 04/22 01:13 Order name: Urine Drug Screen; Complete Time: 04:07 [facility] 04/22 04:08 Order name: Dilantin; Complete Time: 04:33 [facility] 04/22 04:37 Order name: Urine Dipstick--Ancillary (enter results) 04/22 01:13 Order name: XRAY Chest (1 view) [facility] 04/22 01:13 Order name: EKG; Complete Time: 01:15 [facility] 04/22 01:13 Order name: Cardiac monitoring; Complete Time: 01:39 [facility] 04/22 01:13 Order name: EKG - Nurse/Tech; Complete Time: 01:39 [facility] 04/22 01:13 Order name: IV Saline Lock; Complete Time: 01:39 [facility] 04/22 01:13 Order name: Labs collected and sent; Complete Time: 01:39 [facility] 04/22 01:13 Order name: O2 Per Protocol; Complete Time: 01:39 [facility] 04/22 01:13 Order name: O2 Sat Monitoring; Complete Time: 01:39 [facility] 04/22 01:13 Order name: Urine Dipstick-Ancillary (obtain specimen); Complete Time: 03:14 [facility] 04/22 01:13 Order name: Seizure Precautions; Complete Time: 01:39 [facility] Administered Medications: 01:40 Drug: Fosphenytoin 500 mg Route: IVPB; Site: right antecubital; rr5 02:10 Follow up: Response: No adverse reaction; IV Status: Completed infusion; IV Intake: rr5 100ml 02:14 Follow up: Response: No adverse reaction; IV Status: Completed infusion rr5 01:40 Drug: NS 0.9% 500 ml Route: IV; Rate: bolus; Site: right antecubital; rr5 02:20 Follow up: Response: No adverse reaction; IV Status: Completed infusion; IV Intake: rr5 500ml 01:46 Drug: Ativan 1 mg Route: IVP; Site: right antecubital; rr5 04:59 Follow up: Response: No adverse reaction rr5 02:15 Drug: Thiamine 100 mg Route: IV; Rate: bolus; Site: right antecubital; rr5 02:45 Follow up: Response: No adverse reaction; IV Status: Completed infusion; IV Intake: [id number] 02:15 Drug: NS 0.9% 1000 ml Route: IV; Rate: 125 ml/hr; Site: right antecubital; rr5 04:59 Follow up: Response: No adverse reaction; IV Status: Order to discontinue infusion; IV rr5 Intake: 375ml 04:40 Drug: Dilantin 200 mg Route: PO; rr5 04:55 Follow up: Response: Medication administered at discharge. rr5 Disposition: 04/22/18 04:33 Discharged to Home. Impression: Epilepsy and recurrent seizures. - Condition is Stable. - Discharge Instructions: Seizure, Adult, Seizure, Adult, [id number]. - Prescriptions for Dilantin Kapseal 100 mg Oral Capsule - take 1 capsule by ORAL route every 6 hours; 90 capsule. - Medication Reconciliation Form, Thank You Letter, Antibiotic Education, Prescription Opioid Use form. - Follow up: Private Physician; When: 2 - 3 days; Reason: Recheck today's complaints, Continuance of care, Re-evaluation by your physician. Follow up: Chandler Cruz; When: 2 - 3 days; Reason: Recheck today's complaints, Continuance of care, Re-evaluation by your physician. - Problem is new. - Symptoms have improved. Signatures: Dispatcher [employer] EDJason Khan MD MD cha Knox, Taylor, RN RN tl2 Farzad Wilson RN RN rr5 Corrections: (The following items were deleted from the chart) 05:02 04:33 04/22/2018 04:33 Discharged to Home. Impression: Epilepsy and recurrent seizures. rr5 Condition is Stable. Discharge Instructions: Seizure, Adult, Seizure, Adult, [id number]. Prescriptions for Dilantin Kapseal 100 mg Oral Capsule - take 1 capsule by ORAL route every 6 hours; 90 capsule. and Forms are Medication Reconciliation Form, Thank You Letter, Antibiotic Education, Prescription Opioid Use. Follow up: Private Physician; When: 2 - 3 days; Reason: Recheck today's complaints, Continuance of care, Re-evaluation by your physician. Follow up: Chandler Cruz; When: 2 - 3 days; Reason: Recheck today's complaints, Continuance of care, Re-evaluation by your physician. Problem is new. Symptoms have improved. rupa
[2018-04-22 04:44] LABS: Urine Blood NEGATIVE (NEG); Urine Glucose NEGATIVE (NEG); Urine Protein NEGATIVE (NEG); Urine Specific Gravity 1.025 (1.005-1.030)
[2018-04-22] MEDS ORDERED: PHENYTOIN ER 100 MG CAP PO ONE (04:46)
--- NOTE | 2018-04-22 06:57 | EKG ---
Test Date: 2018-04-22 Test Time: 01:27:38 Fertilizer Mixer: ALEJANDRA MEASUREMENT RESULTS: Intervals: Rate: 76 WA: 170 QRSD: 92 QT: 380 QTc: 427 Manning: P: 74 WA: 170 QRS: -28 T: 81 INTERPRETIVE STATEMENTS: Normal sinus rhythm Normal ECG Compared to ECG 01/25/2018 15:12:05 No significant changes Electronically Signed On 04-22-18 06:57:22 [employer] by Dave Reynoso
--- NOTE | 2018-04-22 07:53 | RAD REPORT ---
EXAM DESCRIPTION: Darius Single View04/22/2018 1:34 am CLINICAL HISTORY: Cough COMPARISON: January 2018 FINDINGS: Lungs are hyperaerated. The lungs appear clear of acute infiltrate. The heart is normal size IMPRESSION: No acute abnormalities displayed
== END 2018-04-22 05:02 | disposition home or self-care (01) ==
LOC: ER 01:01
DX: G40.802 Other epilepsy, not intractable, without status epilepticus (principal); F17.210 Nicotine dependence, cigarettes, uncomplicated; J44.9 Chronic obstructive pulmonary disease, unspecified; F10.20 Alcohol dependence, uncomplicated
CPT/HCPCS: 36415; 71045; 80048; 80076; 80185; 80307 ×8; 80320; 80329 ×2; 81003; 83735; 84484; 85025; 85610; 85730; 93005; 96361; 96365; 96367; 96375; 99284; J3411; J7030; Q2009

== ENCOUNTER 2018-04-23 19:14 | Emergency (ER) | payer MEDICARE ==
[2018-04-23 23:32] LABS: Protime INR 1.08
[2018-04-23 23:34] LABS: Absolute Monocytes 1.3 K/uL (0.1-1.3); Absolute Neutrophil 6.6 K/uL (1.8-8.0); Basophils % 1.5 % (0-1.3); Eosinophils % 2.4 % (0-4.4); Hematocrit 44.4 % (39.6-49.0); MCH 32.3 pg (27.0-35.0); MCV 94.3 fL (80-100); MPV 9.2 fL (7.6-11.3); Monocytes % 10.6 % (3.3-12.3)
[2018-04-24 00:08] LABS: ALT/SGPT 22 U/L (12-78); AST/SGOT 20 U/L (15-37); Albumin 4.2 g/dL (3.4-5.0); Alkaline Phosphatase 129 U/L (45-117); BUN Blood Urea Nitrogen 11 mg/dL (7-18); Bicarbonate 25 mmol/L (21-32); Bilirubin Direct 0.2 mg/dL (0-0.2); Bilirubin Total 0.5 mg/dL (0.2-1.0); Glucose Level 81 mg/dL (74-106); Magnesium 2.3 mg/dL (1.8-2.4); NT PRO-BNP 112 pg/mL (<125); Potassium 3.9 mmol/L (3.5-5.1); Protein, Total 8.4 g/dL (6.4-8.2); Sodium Level 137 mmol/L (136-145); Troponin (Emerg Dept Use Only) < 0.02 ng/mL (0.0-0.045)
--- NOTE | 2018-04-24 00:22 | ER ---
Nurse's Notes [facility] Name: Allan Swanson Jr Age: 57 yrs Sex: Male : 1960 Arrival Date: 04/23/2018 Time: 19:15 Bed 15 Private MD: Diagnosis: Weakness;Ataxic gait Presentation: 04/23 19:21 Presenting complaint: Patient states: "I had a seizure yesterday and since then I can't aj keep my balance when I am walking." Patient reports driving himself to ER. Patient stood up from wheelchair and took off his jacket with no difficulty, and was able to maintain balance. Transition of care: patient was not received from another setting of care. Onset of symptoms was April 22, 2018. Risk Assessment: Do you want to hurt yourself or someone else? Patient reports no desire to harm self or others. Initial Sepsis Screen: Does the patient meet any 2 criteria? No. Patient's initial sepsis screen is negative. Does the patient have a suspected source of infection? No. Patient's initial sepsis screen is negative. Care prior to arrival: None. 19:21 Method Of Arrival: Ambulatory 19:21 Acuity: ARSLAN 3 aj Triage Assessment: 19:23 General: Appears in no apparent distress. comfortable, Behavior is calm, cooperative, aj appropriate for age. General: Smells of smoke. Pain: Denies pain. Neuro: Level of Consciousness is awake, alert, obeys commands, Oriented to person, place, time, situation, Appropriate for age [employer] P[employer] Consultant are equal bilaterally Moves all extremities. Full function Speech is normal, Facial symmetry appears normal. Respiratory: Airway is patent Respiratory effort is even, unlabored, Respiratory pattern is regular, symmetrical. Derm: Skin is intact, is healthy with good turgor, Skin is pink, warm \\T\\ dry. normal. Historical: - Allergies: 19:23 NKDA; aj - Home Meds: 19:23 mavyret 100 40 mg 3 tab daily [Active]; omeprazole 40 mg Oral cpDR 1 cap once daily aj [Active]; Phenytoin 100 mg Oral 3 tabs nightly [Active]; - PMHx: 19:23 alcoholism (6 months sober); COPD; hepatits C; Seizures; aj - Immunization history:: Adult Immunizations up to date. - Social history:: Smoking status: Patient uses tobacco products, smokes one pack cigarettes per day. - Ebola Screening: : Patient negative for fever greater than or equal to 101.5 degrees Fahrenheit, and additional compatible Ebola Virus Disease symptoms Patient denies exposure to infectious person Patient denies travel to an Ebola-affected area in the 21 days before illness onset No symptoms or risks identified at this time. Screenin:41 Abuse screen: Denies threats or abuse. Nutritional screening: No deficits noted. ea Tuberculosis screening: No symptoms or risk factors identified. Fall Risk None identified. Assessment: 20:41 General: Appears in no apparent distress. Behavior is calm, cooperative, appropriate ea for age. Pain: Denies pain. Neuro: Level of Consciousness is awake, alert, obeys commands, Oriented to person, place, time, situation, [employer] P[employer] Consultant are weak on left pt reports he had an accident on the left hand that caused him to have poor muscle tone. Reports dizziness. Cardiovascular: Heart tones S1 S2 present Patient's skin is warm and dry. Respiratory: Airway is patent Respiratory effort is even, unlabored, Respiratory pattern is regular, symmetrical, Breath sounds are diminished bilaterally. GI: Bowel sounds present X 4 quads. Derm: Skin is pink, warm \\T\\ dry. 21:15 Reassessment: Patient and/or family updated on plan of care and expected duration. Pain ea level reassessed. Patient is alert, oriented x 3, equal unlabored respirations, skin warm/dry/pink. 22:23 Reassessment: Patient and/or family updated on plan of care and expected duration. Pain ea level reassessed. Patient is alert, oriented x 3, equal unlabored respirations, skin warm/dry/pink. Awaiting on results. 23:00 Reassessment: No changes from previously documented assessment. Patient and/or family ea updated on plan of care and expected duration. Pain level reassessed. Vital Signs: 19:23 BP 166 / 105; Pulse 97; Resp 20; Temp 97.9; Pulse Ox 97% on R/A; Weight 72.57 kg; aj Height 6 ft. 2 in. (187.96 cm); 20:50 BP 122 / 83; Pulse 76; Resp 20; Pulse Ox 95% on R/A; ea 21:30 BP 130 / 83; Pulse 75; Resp 18; Pulse Ox 96% ; ea 22:30 BP 142 / 106; Pulse 90; Resp 18; Pulse Ox 99% ; ea 23:50 BP 130 / 90; Pulse 80; Resp 18; Pulse Ox 99% on R/A; ea 04/24 00:40 BP 140 / 80; Pulse 80; Resp 18; Pulse Ox 99% ; ea 04/23 19:23 Body Mass Index 20.54 (72.57 kg, 187.96 cm) ED Course: 04/23 19:15 Patient arrived in ED. am2 19:22 Triage completed. aj 19:23 Arm band placed on left wrist. Patient placed in waiting room, Patient notified of wait aj time. 20:15 Jeff Feldman MD is Attending Physician. tw4 20:27 Corinne Ramesh, RN is Primary Nurse. ea 20:41 Patient has correct armband on for positive identification. Bed in low position. Call ea light in reach. Side rails up X 1. 22:59 Radiology exam delayed due to LAB TECHS WAITING TO DRAW BLOOD. 2 23:21 CT Head Brain wo Cont In Process Unspecified. EDGA 23:26 CT completed. Patient tolerated procedure well. Patient moved to CT via stretcher. Patient moved back from CT. 04/24 00:36 No provider procedures requiring assistance completed. IV discontinued, intact, ea bleeding controlled, No redness/swelling at site. Pressure dressing applied. Administered Medications: No medications were administered Outcome: 00:21 Discharge ordered by . tw4 00:40 Discharged to home ambulatory. ea 00:40 Condition: good 00:40 Discharge instructions given to patient, Instructed on discharge instructions, follow up and referral plans. Demonstrated understanding of instructions, follow-up care. 00:40 Patient left the ED. ea Signatures: Dispatcher [employer] EDChinyere Gaines, RN RN Jose Ramon Sanders Nathan nj Moreno, Amanda Addie Barrett [facility] Corinne Ramesh, Jeff Acevedo RN, ea, MD MD tw4 Corrections: (The following items were deleted from the chart) 04/23 22:59 22:46 Patient moved to [place] [id number]
--- NOTE | 2018-04-24 00:22 | EDPHYS ---
Physician Documentation [facility] Name: Allan Swanson Jr Age: 57 yrs Sex: Male : 1960 Arrival Date: 04/23/2018 Time: 19:15 Bed 15 Private MD: ED Physician Jeff Feldman HPI: 04/24 04:17 This 57 yrs old Male presents to ER via Ambulatory with complaints of cant tw4 keep balance. 04:17 The patient presents with dizziness, lightheadedness, feeling off balance. Onset: The tw4 symptoms/episode began/occurred this morning, today. Context: occurred at home, occurred while the patient was getting up from bed. Modifying factors: The symptoms are alleviated by nothing, the symptoms are aggravated by movement of head, standing up. Associated signs and symptoms: The patient has no apparent associated signs or symptoms. Severity of symptoms: At their worst the symptoms were moderate in the emergency department the symptoms have resolved. The patient has not experienced similar symptoms in the past. The patient has been recently seen at the [facility] Emergency Department, yesterday, for unrelated complaints, pt seen for seizure disorder. Historical: - Allergies: 04/23 19:23 NKDA; aj - Home Meds: 19:23 mavyret 100 40 mg 3 tab daily [Active]; omeprazole 40 mg Oral cpDR 1 cap once daily aj [Active]; Phenytoin 100 mg Oral 3 tabs nightly [Active]; - PMHx: 19:23 alcoholism (6 months sober); COPD; hepatits C; Seizures; aj - Immunization history:: Adult Immunizations up to date. - Social history:: Smoking status: Patient uses tobacco products, smokes one pack cigarettes per day. - Ebola Screening: : Patient negative for fever greater than or equal to 101.5 degrees Fahrenheit, and additional compatible Ebola Virus Disease symptoms Patient denies exposure to infectious person Patient denies travel to an Ebola-affected area in the 21 days before illness onset No symptoms or risks identified at this time. ROS: 04/24 04:17 Constitutional: Negative for fever, chills, and weight loss, Eyes: Negative for injury, tw4 pain, redness, and discharge, Cardiovascular: Negative for chest pain, palpitations, and edema, Respiratory: Negative for shortness of breath, cough, wheezing, and pleuritic chest pain, Abdomen/GI: Negative for abdominal pain, nausea, vomiting, diarrhea, and constipation, Back: Negative for injury and pain, MS/Extremity: Negative for injury and deformity, Skin: Negative for injury, rash, and discoloration. Neuro: Positive for dizziness, Negative for altered mental status, numbness, seizure activity, speech changes, syncope, tingling, tinnitus, tremor, visual changes, weakness. Exam: 04:17 Constitutional: This is a well developed, well nourished patient who is awake, alert, tw4 and in no acute distress. Head/Face: Normocephalic, atraumatic. Chest/axilla: Normal chest wall appearance and motion. Nontender with no deformity. No lesions are appreciated. Cardiovascular: Regular rate and rhythm with a normal S1 and S2. No gallops, murmurs, or rubs. Normal PMI, no JVD. No pulse deficits. Respiratory: Lungs have equal breath sounds bilaterally, clear to auscultation and percussion. No rales, rhonchi or wheezes noted. No increased work of breathing, no retractions or nasal flaring. Abdomen/GI: Soft, non-tender, with normal bowel sounds. No distension or tympany. No guarding or rebound. No evidence of tenderness throughout. Back: No spinal tenderness. No costovertebral tenderness. Full range of motion. MS/ Extremity: Pulses equal, no cyanosis. Neurovascular intact. Full, normal range of motion. Neuro: Awake and alert, GCS 15, oriented to person, place, time, and situation. Cranial nerves II-XII grossly intact. Motor strength 5/5 in all extremities. Sensory grossly intact. Cerebellar exam normal. Normal gait. 04:17 ECG was reviewed by the Attending Physician. tw4 Vital Signs: 04/23 19:23 BP 166 / 105; Pulse 97; Resp 20; Temp 97.9; Pulse Ox 97% on R/A; Weight 72.57 kg; aj Height 6 ft. 2 in. (187.96 cm); 20:50 BP 122 / 83; Pulse 76; Resp 20; Pulse Ox 95% on R/A; ea 21:30 BP 130 / 83; Pulse 75; Resp 18; Pulse Ox 96% ; ea 22:30 BP 142 / 106; Pulse 90; Resp 18; Pulse Ox 99% ; ea 23:50 BP 130 / 90; Pulse 80; Resp 18; Pulse Ox 99% on R/A; ea 04/24 00:40 BP 140 / 80; Pulse 80; Resp 18; Pulse Ox 99% ; ea 04/23 19:23 Body Mass Index 20.54 (72.57 kg, 187.96 cm) aj MDM: 04/23 20:15 Patient medically screened. tw4 04/24 04:20 Differential diagnosis: cardiac arrhythmia, CVA, generalized weakness, idiopathic tw4 dizziness. Data reviewed: vital signs, nurses notes. Data interpreted: Pulse oximetry: Interpretation: normal. Test interpretation: by ED physician or midlevel provider: ECG. Counseling: I had a detailed discussion with the patient and/or guardian regarding: the historical points, exam findings, and any diagnostic results supporting the discharge/admit diagnosis. Special discussion: I discussed with the patient/guardian in detail that at this point there is no indication for admission to the hospital. It is understood, however, that if the symptoms persist or worsen the patient needs to return immediately for re-evaluation. Special discussion: Based on the history and exam findings, there is no indication for further emergent testing or inpatient evaluation. I discussed with the patient/guardian the need to see the neurologist for further evaluation of the symptoms. 04/23 21:26 Order name: Basic Metabolic Panel; Complete Time: 00:19 04/24 00:19 Interpretation: Within normal limits. 04/23 21:26 Order name: CBC with Diff 04/23 21:26 Order name: LFT's; Complete Time: 00:19 04/24 00:19 Interpretation: Normal except: ALK 129; TP 8.4; GLOB 4.2; A/G 1.0. 04/23 21:26 Order name: Magnesium; Complete Time: 00:19 04/24 00:19 Interpretation: Within normal limits: MG 2.3. 04/23:26 Order name: NT PRO-BNP; Complete Time: 00:19 04/24 00:19 Interpretation: Within normal limits: NT PRO-BNP 112. 04/23 21:26 Order name: PT-INR; Complete Time: 00:19 04/24 00:19 Interpretation: Within normal limits: PT 12.8. 04/23 21:26 Order name: Troponin (emerg Dept Use Only); Complete Time: 00:19 ea 04/24 00:20 Interpretation: Within normal limits: TROPED < 0.02. tw4 04/23 21: Order name: EKG; Complete Time: 21:27 ea 04/23 21: Order name: Cardiac monitoring; Complete Time: 21:57 04/23 21: Order name: EKG - Nurse/Tech; Complete Time: 21:58 04/23 21: Order name: IV Saline Lock; Complete Time: 23:07 ea 04/23 21: Order name: Labs collected and sent; Complete Time: 23:08 04/23 21: Order name: O2 Per Protocol; Complete Time: 22:04 04/23 22:43 Order name: CT Head Brain wo Cont tw4 04/23 21: Order name: O2 Sat Monitoring; Complete Time: 22:04 ea EC:17 Rate is 68 beats/min. Rhythm is regular. QRS [place] is Normal. OK interval is normal. QRS tw4 interval is normal. QT interval is normal. No Q waves. T waves are Normal. No ST changes noted. Clinical impression: Abnormal EKG without significant change. Interpreted by me. Reviewed by me. Administered Medications: No medications were administered Disposition: 04/24/18 00:21 Discharged to Home. Impression: Weakness, Ataxic gait. - Condition is Stable. - Discharge Instructions: Weakness, Fatigue, Ataxia. - Medication Reconciliation Form, Thank You Letter, Antibiotic Education, Prescription Opioid Use form. - Follow up: Private Physician; When: Upon discharge from the Emergency Department; Reason: If symptoms return, Recheck today's complaints, Continuance of care. - Problem is new. - Symptoms have improved. Signatures: Dispatcher [employer] EDChinyere Gaines RN Corinne English RN RN ea Wadley, Terrence, MD MD tw4 Corrections: (The following items were deleted from the chart) 00:40 00:21 04/24/2018 00:21 Discharged to Home. Impression: Weakness; Ataxic gait. Condition ea is Stable. Forms are Medication Reconciliation Form, Thank You Letter, Antibiotic Education, Prescription Opioid Use. Follow up: Private Physician; When: Upon discharge from the Emergency Department; Reason: If symptoms return, Recheck today's complaints, Continuance of care. Problem is new. Symptoms have improved. tw4
--- NOTE | 2018-04-24 08:05 | RAD REPORT ---
EXAM DESCRIPTION: CT - Head Brain Wo Cont - 04/24/2018 4:11 am CLINICAL HISTORY: Seizure, ataxia, history of seizures A preliminary report was provided at the time of the study and reviewed prior to final report. COMPARISON: CT head December 19, 2017 TECHNIQUE: Axial 5 mm thick images of the head were obtained without IV contrast. All CT scans are performed using dose optimization technique as appropriate and may include automated exposure control or mA/KV adjustment according to patient size. FINDINGS: No intracranial hemorrhage, mass, edema or shift of mid-line structures. No acute infarcti on changes seen. No abnormal extra-axial fluid collections. Ventricles are normal. Intracranial findi ngs are similar to the December study. Mastoid air cells and visualized portions of the paranasal sinuses are clear. No acute bony findings. IMPRESSION: Negative noncontrast CT head examination for acute or significant finding. No significant change from December comparison.
--- NOTE | 2018-04-24 09:22 | EKG ---
Test Date: 2018-04-23 Test Time: 21:32:42 Machine Operator General: LUCINDA MEASUREMENT RESULTS: Intervals: Rate: 68 GA: 152 QRSD: 94 QT: 400 QTc: 425 [place]: P: 68 GA: 152 QRS: -38 T: 65 INTERPRETIVE STATEMENTS: Normal sinus rhythm Left axis deviation Septal infarct, age undetermined Abnormal ECG Compared to ECG 04/22/2018 01:27:38 Left-axis deviation now present Myocardial infarct finding now present Electronically Signed On 04-24-18 09:21:39 SLURRY CONTROL OPERATOR HELPER by Dave Reynoso
== END 2018-04-24 00:40 | disposition home or self-care (01) ==
LOC: ER 19:14
DX: R26.0 Ataxic gait (principal); F10.20 Alcohol dependence, uncomplicated; J44.9 Chronic obstructive pulmonary disease, unspecified; G40.909 Epilepsy, unspecified, not intractable, without status epilepticus; F17.210 Nicotine dependence, cigarettes, uncomplicated
CPT/HCPCS: 36415; 70450; 80048; 80076; 83735; 83880; 84484; 85025; 85610; 93005; 99284

== ENCOUNTER 2018-05-24 21:42 | Emergency (ER) | payer MEDICARE ==
--- OUTSIDE RECORDS SUMMARY | 2018-05-24 21:43 | XMS REPORT ---
:1960 [facility] Address [address] [place] [address] Dr. Cerda. [address] [place] [id number] Care Team Providers Name Role Phone Unavailable Unavailable Unavailable Problems This patient has no known problems. Allergies, Adverse Reactions, Alerts This patient has no known allergies or adverse reactions. Medications This patient has no known medications.
[2018-05-24] MEDS ORDERED: NA CHLORIDE 0.9% 1,000 ML ONE (23:36)
[2018-05-24] MEDS ORDERED: LEVALBUTEROL 1.25 MG/3 ML NEB ONE (23:36)
[2018-05-24 23:40] LABS: Absolute Lymphocytes (CBC) 2.2 K/uL (0.7-4.9); Absolute Monocytes 1.6 K/uL (0.1-1.3); Absolute Neutrophil 11.8 K/uL (1.8-8.0); Basophils % 0.9 % (0-1.3); Eosinophils % 0.2 % (0-4.4); Lymphocytes % 13.6 % (15.3-44.8); MPV 8.2 fL (7.6-11.3); Monocytes % 10.4 % (3.3-12.3)
[2018-05-25 00:01] LABS: Magnesium 2.4 mg/dL (1.8-2.4); Potassium 3.9 mmol/L (3.5-5.1); Troponin (Emerg Dept Use Only) 0.04 ng/mL (0.0-0.045)
--- NOTE | 2018-05-25 01:20 | ER ---
Nurse's Notes [facility] Name: Allan Swanson Jr Age: 58 yrs Sex: Male : 1960 Arrival Date: 05/24/2018 Time: 21:46 Bed 20 Private MD: Diagnosis: Epilepsy and recurrent seizures;Radiculopathy, cervical region Presentation: 05/24 21:46 Presenting complaint: Patient states: I have been having neck and left shoulder pain jb4 along with abdominal pain. I had a seizure this morning, but the pain has not changed and was there before an after the seizure and will not go away. EMS states: Pt Is complaining of abdominal pain. 21:46 Transition of care: patient was not received from another setting of care. Onset of jb4 symptoms was May 24, 2018. Risk Assessment: Do you want to hurt yourself or someone else? Patient reports no desire to harm self or others. Initial Sepsis Screen: Does the patient meet any 2 criteria? No. Patient's initial sepsis screen is negative. Does the patient have a suspected source of infection? No. Patient's initial sepsis screen is negative. Care prior to arrival: None. 21:46 Method Of Arrival: EMS: [facility] jb4 21:46 Acuity: ARSLAN 3 jb4 Triage Assessment: 21:46 General: Appears in no apparent distress. comfortable, Behavior is calm, cooperative, jb4 appropriate for age. Pain: Complains of pain in Neck, Left shoulder, Abdominal Pain does not radiate. Pain currently is 5 out of 10 on a pain scale. EENT: No signs and/or symptoms were reported regarding the EENT system. Neuro: Level of Consciousness is awake, alert, obeys commands, Oriented to person, place, situation, This is the pt's reported norm.. Cardiovascular: Heart tones S1 S2 present Patient's skin is warm and dry. Respiratory: Airway is patent Respiratory effort is even, unlabored, Respiratory pattern is regular, symmetrical, Breath sounds are clear bilaterally. GI: Abdomen is flat, non-distended, Bowel sounds present X 4 quads. Abd is soft and non tender X 4 quads. : No signs and/or symptoms were reported regarding the genitourinary system. Derm: Skin is intact, Skin is pink, warm \T\ dry. Musculoskeletal: Circulation, motion, and sensation intact. Historical: - Allergies: 21:46 Dilantin; jb4 21:46 Keppra; jb4 - Home Meds: 21:46 divalproex oral oral [Active]; Folic Acid Oral [Active]; jb4 - PMHx: 21:46 alcoholism (6 months sober); COPD; hepatits C; Seizures; jb4 - PSHx: 21:46 None; jb4 - Immunization history:: Adult Immunizations unknown, Flu vaccine is up to date. - Social history:: Smoking status: Patient uses tobacco products, smokes one pack cigarettes per day. Patient uses alcohol. - Ebola Screening: : No symptoms or risks identified at this time. - Family history:: not pertinent. - Hospitalizations: : No recent hospitalization is reported. Screenin:46 Abuse screen: Denies threats or abuse. Nutritional screening: No deficits noted. jb4 Tuberculosis screening: No symptoms or risk factors identified. Fall Risk Secondary diagnosis (15 points) seizures, Total Pratt Fall Scale indicates No Risk (0-24 pts). Assessment: 21:46 General: See triage report.. jb4 22:45 Reassessment: Patient appears in no apparent distress at this time. Patient and/or jb4 family updated on plan of care and expected duration. Pain level reassessed. Patient is alert, oriented x 3, equal unlabored respirations, skin warm/dry/pink. 23:42 Reassessment: Patient appears in no apparent distress at this time. Patient and/or jb4 family updated on plan of care and expected duration. Pain level reassessed. Patient is alert, oriented x 3, equal unlabored respirations, skin warm/dry/pink. 05/25 01:15 Reassessment: Patient appears in no apparent distress at this time. Patient and/or jb4 family updated on plan of care and expected duration. Pain level reassessed. Patient is alert, oriented x 3, equal unlabored respirations, skin warm/dry/pink. 01:54 Reassessment: Patient appears in no apparent distress at this time. Patient and/or jb4 family updated on plan of care and expected duration. Pain level reassessed. Patient is alert, oriented x 3, equal unlabored respirations, skin warm/dry/pink. Discussed D/c, F/u with pt, denies questions or concerns. Vital Signs: 05/24 21:46 BP 121 / 72; Pulse 105; Resp 16; Temp 99.2(O); Pulse Ox 93% on R/A; Weight 74.84 kg jb4 (R); Height 6 ft. 2 in. (187.96 cm) (R); Pain 5/10; 23:00 BP 135 / 69; Pulse 88; Resp 16; Pulse Ox 93% on R/A; jb4 05/25 00:00 BP 115 / 66; Pulse 83; Resp 16; Pulse Ox 99% on Nebulizer Mask; jb4 01:00 BP 105 / 61; Pulse 81; Resp 16; Pulse Ox 93% on R/A; jb4 01:43 BP 117 / 63; Pulse 85; Resp 16; Pulse Ox 95% on R/A; oe 05/24 21:46 Body Mass Index 21.18 (74.84 kg, 187.96 cm) jb4 ED Course: 05/24 21:46 Patient arrived in ED. al2 21:46 Arm band placed on left wrist. jb4 21:46 Patient has correct armband on for positive identification. Placed in gown. Bed in low jb4 position. Call light in reach. Side rails up X2. Seizure precautions initiated. feed project engineer on. Pulse ox on. NIBP on. 21:48 Seth Nash MD is Attending Physician. rn 22:05 Juan Jose Kessler, FABIOLA is Primary Nurse. jb4 22:08 Triage completed. jb4 22:[address] via stretcher. bq 22:23 CT completed. Patient moved back from CT. bq 22:33 XRAY Chest (1 view) In Process Unspecified. EDMS 22:34 Head C Spine Mpr Wo Con In Process Unspecified. EDMS 23:35 Accessed 8cm 18G Mid-line placed to right brachial vein on first attempt, +blood la1 return, flushes easily, secured with tegaderm. Pt tolerated procedure well. Clean \T\ dry. Good blood return. Flushes easily. 05/25 01:54 No provider procedures requiring assistance completed. IV discontinued, intact, jb4 bleeding controlled. Administered Medications: 05/24 23:39 Drug: Xopenex 1.25 mg Route: Inhalation; [facility] 05/25 00:15 Follow up: Response: No adverse reaction [facility] 05/24 23:39 Drug: NS 0.9% 1000 ml Route: IV; Rate: 1000 ml; Site: right upper arm; jb4 05/25 00:40 Follow up: Response: No adverse reaction; IV Status: Completed infusion jb4 Outcome: 01:19 Discharge ordered by . rn 01:54 Discharged to home via wheelchair. jb4 01:54 Condition: stable 01:54 Discharge instructions given to patient, Instructed on discharge instructions, follow up and referral plans. medication usage, Demonstrated understanding of instructions, follow-up care, medications. 01:55 Patient left the ED. jb4 Signatures: Dispatcher [employer] EDMS Nani Blum Roman, MD MD rn Cheryl, Robb RN RN la1 Juan Jose Kessler RN RN jb4 Alton Lovett Angelica al2 Corrections: (The following items were deleted from the chart) 05/24 23:57 23:35 Accessed 8cm Mid-line placed to right brachial vein on first attempt, +blood la1 return, flushes easily, secured with tegaderm. Pt tolerated procedure well. Clean \T\ dry. Good blood return. Flushes easily. la1
--- NOTE | 2018-05-25 01:20 | EDPHYS ---
Physician Documentation [facility] Name: Allan Swanson Jr Age: 58 yrs Sex: Male : 1960 Arrival Date: 05/24/2018 Time: 21:46 Bed 20 Private MD: ED Physician Seth Nash HPI: 05/25 00:01 This 58 yrs old Male presents to ER via EMS with complaints of seizure. rn 00:01 The patient presents after having a single isolated seizure. Associated injury: The rn patient did not suffer any apparent associated injury. Current symptoms: Currently, the patient is not experiencing any symptoms. The patient has experienced similar episodes in the past. Reports has frequent seizures, changed from dilantin to depakote, reports sitting at home with other people, woke up and ambulance was there, thinks had another seizure. Reports has been having neck pain without trauma, no focal neurological complaints. . Historical: - Allergies: 05/24 21:46 Dilantin; jb4 21:46 Keppra; jb4 - Home Meds: 21:46 divalproex oral oral [Active]; Folic Acid Oral [Active]; jb4 - PMHx: 21:46 alcoholism (6 months sober); COPD; hepatits C; Seizures; jb4 - PSHx: 21:46 None; jb4 - Immunization history:: Adult Immunizations unknown, Flu vaccine is up to date. - Social history:: Smoking status: Patient uses tobacco products, smokes one pack cigarettes per day. Patient uses alcohol. - Ebola Screening: : No symptoms or risks identified at this time. - Family history:: not pertinent. - Hospitalizations: : No recent hospitalization is reported. ROS: 05/25 00:01 Constitutional: Negative for fever, chills, and weight loss, Eyes: Negative for injury, rn pain, redness, and discharge, Neck: Negative for injury, and swelling, Cardiovascular: Negative for chest pain, palpitations, and edema, Respiratory: Negative for shortness of breath, cough, wheezing, and pleuritic chest pain, Abdomen/GI: Negative for abdominal pain, nausea, vomiting, diarrhea, and constipation, MS/Extremity: Negative for injury and deformity, Skin: Negative for injury, rash, and discoloration, Neuro: Negative for headache, weakness, numbness, tingling Exam: 00:01 Constitutional: This is a well developed, well nourished patient who is awake, alert, rn and in no acute distress. Head/Face: Normocephalic, atraumatic. Eyes: Pupils equal round and reactive to light, extra-ocular motions intact. Lids and lashes normal. Conjunctiva and sclera are non-icteric and not injected. Cornea within normal limits. Periorbital areas with no swelling, redness, or edema. ENT: dry MM Neck: Trachea midline, no thyromegaly or masses palpated, and no cervical lymphadenopathy. Supple, full range of motion without nuchal rigidity, or vertebral point tenderness. No Meningismus. Cardiovascular: Regular rate and rhythm with a normal S1 and S2. No gallops, murmurs, or rubs. No JVD. No pulse deficits. Respiratory: Lungs have equal breath sounds bilaterally, clear to auscultation Abdomen/GI: soft, non-tender MS/ Extremity: Pulses equal, no cyanosis. Neurovascular intact. Full, normal range of motion. Equal circumference. Neuro: Awake and alert, GCS 15, oriented to person, place, time, and situation. Cranial nerves II-XII grossly intact. Motor strength 5/5 in all extremities. Sensory grossly intact. Cerebellar exam normal. Vital Signs: 05/24 21:46 BP 121 / 72; Pulse 105; Resp 16; Temp 99.2(O); Pulse Ox 93% on R/A; Weight 74.84 kg jb4 (R); Height 6 ft. 2 in. (187.96 cm) (R); Pain 5/10; 23:00 BP 135 / 69; Pulse 88; Resp 16; Pulse Ox 93% on R/A; jb4 05/25 00:00 BP 115 / 66; Pulse 83; Resp 16; Pulse Ox 99% on Nebulizer Mask; jb4 01:00 BP 105 / 61; Pulse 81; Resp 16; Pulse Ox 93% on R/A; jb4 01:43 BP 117 / 63; Pulse 85; Resp 16; Pulse Ox 95% on R/A; oe 05/24 21:46 Body Mass Index 21.18 (74.84 kg, 187.96 cm) jb4 MDM: 05/24 21:48 Patient medically screened. rn 05/25 01:18 Differential diagnosis: seizure. Data reviewed: vital signs, nurses notes, lab test rn result(s), radiologic studies, CT scan, and as a result, I will discharge patient. Counseling: I had a detailed discussion with the patient and/or guardian regarding: the historical points, exam findings, and any diagnostic results supporting the discharge/admit diagnosis, lab results, the need for outpatient follow up, to return to the emergency department if symptoms worsen or persist or if there are any questions or concerns that arise at home. Response to treatment: the patient's symptoms have mildly improved after treatment, and as a result, I will discharge patient. Special discussion: I discussed with the patient/guardian in detail that at this point there is no indication for admission to the hospital. It is understood, however, that if the symptoms persist or worsen the patient needs to return immediately for re-evaluation. ED course: Pt back to baseline, compliant with medication and has frequent breakthrough seizures, ct neck shows degenerative changes, neck pain possibly pinched nerve, will dc home with steroids and muscle relaxer. . 05/24 21:54 Order name: Basic Metabolic Panel; Complete Time: 00:44 rn 05/24 21:54 Order name: CBC with Diff; Complete Time: 00:44 rn 05/24 21:54 Order name: Magnesium; Complete Time: 00:44 rn 05/24 21:54 Order name: Troponin (emerg Dept Use Only); Complete Time: 00:44 rn 05/24 21:54 Order name: Flu; Complete Time: 00:44 rn 05/24 21:54 Order name: EKG; Complete Time: 21:55 rn 05/24 21:54 Order name: Cardiac monitoring; Complete Time: 23:20 rn 05/24 21:54 Order name: EKG - Nurse/Tech; Complete Time: 23:19 rn 05/24 21:54 Order name: IV Saline Lock; Complete Time: 23:38 rn 05/24 21:54 Order name: XRAY Chest (1 view) rn 05/24 22:22 Order name: Head C Spine Mpr Wo Con EDMS 05/24 21:54 Order name: Labs collected and sent; Complete Time: 23:38 rn 05/24 21:54 Order name: NPO; Complete Time: 23:07 rn 05/24 21:54 Order name: O2 Per Protocol; Complete Time: 23: rn 05/24 21:54 Order name: O2 Sat Monitoring; Complete Time: 23:07 rn Administered Medications: 05/24 23:39 Drug: Xopenex 1.25 mg Route: Inhalation; [facility] 05/25 00:15 Follow up: Response: No adverse reaction [facility] 05/24 23:39 Drug: NS 0.9% 1000 ml Route: IV; Rate: 1000 ml; Site: right upper arm; 4 05/25 00:40 Follow up: Response: No adverse reaction; IV Status: Completed infusion [facility] Disposition: 05/25/18 01:19 Discharged to Home. Impression: Epilepsy and recurrent seizures, Radiculopathy, cervical region. - Condition is Stable. - Discharge Instructions: Cervical Radiculopathy, Seizure, Adult. - Prescriptions for Cyclobenzaprine 10 mg Oral Tablet - take 1 tablet by ORAL route every 8 hours As needed; 20 tablet. Medrol ([place]) 4 mg Oral Tablets, Dose Pack - take 1 tablet by ORAL route as directed - follow package instructions; 1 packet. - Medication Reconciliation Form, Thank You Letter, Antibiotic Education, Prescription Opioid Use form. - Follow up: Private Physician; When: As needed; Reason: Recheck today's complaints, Re-evaluation by your physician. - Problem is new. - Symptoms have improved. Signatures: Dispatcher [employer] [facility] Seth Nash MD MD rn Bryson, James, RN RN jb4 Corrections: (The following items were deleted from the chart) 05/24 22:22 21:55 Head Brain Wo [id number] ordered. [facility] 05/25 01:55 01:19 05/25/2018 01:19 Discharged to Home. Impression: Epilepsy and recurrent seizures; jb4 Radiculopathy, cervical region. Condition is Stable. Forms are Medication Reconciliation Form, Thank You Letter, Antibiotic Education, Prescription Opioid Use. Follow up: Private Physician; When: As needed; Reason: Recheck today's complaints, Re-evaluation by your physician. Problem is new. Symptoms have improved. rn
--- NOTE | 2018-05-25 07:58 | EKG ---
Test Date: 2018-05-24 Test Time: 23:15:07 Space Control Supervisor: LUCINDA MEASUREMENT RESULTS: Intervals: Rate: 87 VA: 156 QRSD: 84 QT: 374 QTc: 450 [place]: P: 84 VA: 156 QRS: 43 T: 97 INTERPRETIVE STATEMENTS: Normal sinus rhythm Possible Left atrial enlargement Borderline ECG Compared to ECG 04/23/2018 21:32:42 Left-axis deviation no longer present Myocardial infarct finding no longer present Electronically Signed On 05-25-18 07:57:31 [employer]ICAL [employer]ANCE COLLECTOR by Dave Reynoso
--- NOTE | 2018-05-25 08:32 | RAD REPORT ---
EXAM DESCRIPTION: CT - [id number] - 05/25/2018 6:56 am CLINICAL HISTORY: Trauma, head and neck injury. syncope vs seizure, and neck pain COMPARISON: No comparisons TECHNIQUE: Axial 5 mm thick images of the head were obtained. Axial 2 mm thick images of the cervical spine were obtained with sagittal and coronal reconstruction images generated and reviewed. All CT scans are performed using dose optimization technique as appropriate and may include automated exposure control or mA/KV adjustment according to patient size. FINDINGS: CT HEAD WITHOUT CONTRAST: No acute hemorrhage, hydrocephalus or extra-axial collection is identified.No areas of brain edema or midline shift. The paranasal sinuses and mastoids are essentially clear.The calvarium is intact. CT CERVICAL SPINE WITHOUT CONTRAST: No fracture or subluxation.Mild to moderate lower cervical degenerative changes.No prevertebral soft tissues swelling is identified. Mild carotid atherosclerosis. IMPRESSION: No acute intracranial or cervical spine findings.
--- NOTE | 2018-05-25 08:42 | RAD REPORT ---
EXAM DESCRIPTION: RAD - Chest Single View - 05/24/2018 10:33 pm CLINICAL HISTORY: COUGH Chest pain. COMPARISON: Chest Single View dated 04/22/2018; Chest Single View dated 01/25/2018; Chest Single View dated 12/31/2016; Chest Single View dated 12/31/2016 FINDINGS: Portable technique limits examination quality. Emphysematous changes are present throughout the lungs. The heart is normal in size. No displaced fra ctures. IMPRESSION: COPD.
== END 2018-05-25 01:55 | disposition home or self-care (01) ==
LOC: ER 21:42
DX: G40.909 Epilepsy, unspecified, not intractable, without status epilepticus (principal); M54.12 Radiculopathy, cervical region; Z88.8 Allergy status to other drugs, medicaments and biological substances
CPT/HCPCS: 36415; 70450; 71045; 72125; 80048; 83735; 84484; 85025; 87804 ×2; 93005; 96360; 99285; J7030